=== PATIENT | female | born 1965 | race Caucasian/White ===

== ENCOUNTER 2017-02-17 10:00 | Emergency (ER) | payer BC, OTHER ==
[~2017-02-17] VITALS: Ht 154.9 cm; Wt 63.5 kg
[2017-02-17 10:12] VITALS: TEMP 36.9; Ht 154.9 cm; Wt 63.5 kg
[2017-02-17] MEDS ORDERED: ALBUTEROL 0.083% NEBU SOLN 3 ML VIAL INH STA (10:19)
[2017-02-17 10:30] LABS: BASO % 0.3 %; BASO ABS # 0.02 K/uL (0-0.2); COMPLETE YES; EOS % 5.8 %; HEMATOCRIT 44.9 % (37-47); IG% 0.2 %; LYMPH % 23.1 %; LYMPH ABS # 1.48 K/uL (1.2-3.4); MEAN CELL VOLUME 89.8 fL (80-100); MEAN CORPUSCULAR HEMOGLOBIN 31.4 pg (25-34); MEAN PLATELET VOLUME 9.5 fL (7.4-10.4); MONO % 7.7 %; NEUT % 62.9 %; PLATELET COUNT 217 K/uL (130-400)
--- NOTE | 2017-02-17 10:30 | DIAGNOSTIC IMAGING REPORT ---
CHEST ONE VIEW PORTABLE CLINICAL HISTORY: Chest Pain dyspnea COMPARISON STUDY: No previous studies for comparison. FINDINGS: The bones soft tissues and hemidiaphragms are normal. The cardiomediastinal silhouette is normal. The lungs are clear. The pulmonary vasculature is normal. IMPRESSION: Negative chest. Electronically signed by: Buster Rodrigez M.D. 02/17/2017 10:29 AM Dictated Date/Time: 02/17/2017 10:29 AM
[2017-02-17] MEDS ORDERED: AMPH30TA2 PO ×2 (10:42→11:07)
[2017-02-17] MEDS ORDERED: CALC600T9 PO ×2 (10:42→11:07)
[2017-02-17] MEDS ORDERED: BLAC40CA2 PO ×2 (10:42→11:07)
[2017-02-17] MEDS ORDERED: MULT-506 PO ×2 (10:42→11:07)
[2017-02-17] MEDS ORDERED: OMEG10007 PO ×2 (10:42→11:07)
[2017-02-17] MEDS ORDERED: BIOT1CAP8 PO ×2 (10:42→11:07)
[2017-02-17 10:48] LABS: BLOOD UREA NITROGEN 12 mg/dl (7-18); BUN/CREATININE RATIO 14.3 (10-20); CALCIUM 9.4 mg/dl (8.5-10.1); CARBON DIOXIDE 26 mmol/L (21-32); CHLORIDE 108 mmol/L (98-107); CREATININE 0.85 mg/dl (0.60-1.20); GLUCOSE 123 mg/dl (70-99); POTASSIUM 3.1 mmol/L (3.5-5.1); SODIUM 145 mmol/L (136-145)
[2017-02-17 10:53] LABS: CKMB/CK RATIO 1.1 (0-3.0)
[2017-02-17] MEDS ORDERED: AMOX875T PO (13:39)
[2017-02-17] MEDS ORDERED: BENZ100C18 PO (13:39)
[2017-02-17 13:52] VITALS: BP 114/66; PULSE 69; O2SAT 93
--- NOTE | 2017-02-17 17:01 | EMERGENCY ROOM VISIT NOTE ---
History Report prepared by Alyse: Ruben Dunaway Under the Supervision of: Dr. Bennett Faulkner D.O. First contact with patient: 10:08 Stated Complaint: ASTHMA History of Present Illness The patient is a 52 year old female who presents to the Emergency Room with complaints of asthma exacerbation that began this morning. Her asthma is usually controlled, but she states that it has worsened since her office began to be renovated and with her recent URI symptoms. She notes that since this past Saturday she has been having a cough which which is bringing up a yellow productive sputum show she had it with sinus and nasal congestion and feeling hot and cold. The cough has been worsening over the past several days. She got to [facility] this morning and her asthma worsened. She notes that she became short of breath. She took a dose of her home medications notes that she had improvement of her shortness of breath. She went to a medical center in [place] and was given steroids and a nebulizer treatment. She notes when she got the shot of steroids in her left arm, she got pain that went from the injection site down her other arm. This has resolved since then. Her breathing is improved at the current time. Her shortness of breath with exertion and chest pain is at baseline and has not changed for the past several years. Patient denies headache, change in vision, fevers, chest pain, nausea, vomiting , diarrhea, pain with urination, and melena. Patient denies any history of diabetes, hypertension, hyperlipidemia, CAD or smoking. Source of History: patient Onset: this morning Position: other (respiratory system) Symptom Intensity: mild Quality: other (Asthma exacerbation) Timing: resolved Modifying Factors (Worsening): exertion Associated Symptoms: No SOB, No back pain, No chest pain, No chills, No cough, No diarrhea, No fevers, No headache, No melena, No nausea, No sorethroat , No urinary symptoms, No vomiting Review of Systems See HPI for pertinent positives & negatives. A total of 10 systems reviewed and were otherwise negative. Past Medical & Surgical Medical Problems: (1) Asthma Family History Patient reports no known family medical history. Social History Smoking Status: Never Smoker Smokeless Tobacco Use: No Alcohol Use: none Drug Use: none Occupation Status: employed Current/Historical Medications Scheduled Amoxicillin & Pot Clavulanate (Augmentin 875-125 mg), 875 MG PO BID Amphetamine-Dextroamphetamine 30MG (Adderall 30MG), 30 MG PO DAILY Benzonatate (Tessalon Perles), 100 MG PO TID Biotin (Biotin), 1 CAP PO DAILY Black Cohosh (Cimicifuga Racem (Black Cohosh), 1 CAP PO DAILY Calcium Carbonate-Vitamin D (Calcium + D), 1 TAB PO DAILY Fish Oil (Hardin-3), 1 CAP PO DAILY Multivitamin (Multivitamin), 1 TAB PO DAILY Allergies Coded Allergies: Codeine (Unverified Allergy, Intermediate, DIZZY, ^ BREATHING, ^ HEARTBEAT , 02/17/17) Lidocaine (Unverified Allergy, Intermediate, DIZZY, ^ BREATHING, ^ HEARTBEAT, 02/17/17) Prednisone (Unverified Adverse Reaction, Intermediate, METALLIC TASTE, VERY MEAN, 02/17/17) "ALL STEROIDS" Physical Exam Vital Signs Date Time Temp Pulse Resp B/P Pulse Ox O2 Delivery O2 Flow Rate FiO2 02/17/17 13:52 69 18 114/66 93 02/17/17 12:42 72 20 99/56 97 02/17/17 11:52 74 02/17/17 11:21 78 18 112/65 100 Room Air 02/17/17 10:12 36.9 73 20 116/58 100 Room Air 02/17/17 10:12 100 Room Air Physical Exam GENERAL:Sitting up in bed, alert, well appearing, well nourished, no distress, non-toxic EYE EXAM: normal conjunctiva OROPHARYNX: no exudate, no erythema, lips, buccal mucosa, and tongue normal and mucous membranes are moist NECK: supple, no nuchal rigidity, no adenopathy, non-tender LUNGS: Mild wheezing in bilateral bases. Nonproductive cough. Normal chest wall mechanics. HEART: no murmurs, S1 normal and S2 normal ABDOMEN: abdomen soft, non-tender, normo-active bowel sounds, no masses, no rebound or guarding. BACK: Back is symmetrical on inspection and there is no deformity, no midline tenderness, no CVA tenderness. SKIN: no rashes and no bruising UPPER EXTREMITIES: upper extremities are grossly normal. LOWER EXTREMITIES: No pitting edema. Calves equal bilaterally. NEURO EXAM: Normal sensorium, cranial nerves II-XII grossly intact, normal speech, no gross weakness of arms, no gross weakness of legs. Medical Decision & Procedures ER Provider Diagnostic Interpretation: Xray results per the radiologist and my interpretation. Other results have been interpreted by the radiologist and reviewed by me. CHEST ONE VIEW PORTABLE CLINICAL HISTORY: Chest Pain dyspnea COMPARISON STUDY: No previous studies for comparison. FINDINGS: The bones soft tissues and hemidiaphragms are normal. The cardiomediastinal silhouette is normal. The lungs are clear. The pulmonary vasculature is normal. IMPRESSION: Negative chest. Electronically signed by: Buster Rodrigez M.D. 02/17/2017 10:29 AM Dictated Date/Time: 02/17/2017 10:29 AM Laboratory Results 02/17/17 10:08 Red Blood Count 5.00, Mean Corpuscular Volume 89.8, Mean Corpuscular Hemoglobin 31.4, Mean Corpuscular Hemoglobin Concent 35.0, Mean Platelet Volume 9.5, Neutrophils (%) (Auto) 62.9, Lymphocytes (%) (Auto) 23.1, Monocytes (%) (Auto) 7.7, Eosinophils (%) (Auto) 5.8, Basophils (%) (Auto) 0.3, Neutrophils # (Auto) 4.03, Lymphocytes # (Auto) 1.48, Monocytes # (Auto) 0.49, Eosinophils # (Auto) 0.37, Basophils # (Auto) 0.02 02/17/17 10:08 Test 02/17/17 10:08 02/17/17 10:52 02/17/17 12:27 White Blood Count 6.40 K/uL (4.8-10.8) Red Blood Count 5.00 M/uL (4.2-5.4) Hemoglobin 15.7 g/dL (12.0-16.0) Hematocrit 44.9 % (37-47) Mean Corpuscular Volume 89.8 fL (80-100) Mean Corpuscular Hemoglobin 31.4 pg (25-34) Mean Corpuscular Hemoglobin Concent 35.0 g/dl (32-36) Platelet Count 217 K/uL (130-400) Mean Platelet Volume 9.5 fL (7.4-10.4) Neutrophils (%) (Auto) 62.9 % Lymphocytes (%) (Auto) 23.1 % Monocytes (%) (Auto) 7.7 % Eosinophils (%) (Auto) 5.8 % Basophils (%) (Auto) 0.3 % Neutrophils # (Auto) 4.03 K/uL (1.4-6.5) Lymphocytes # (Auto) 1.48 K/uL (1.2-3.4) Monocytes # (Auto) 0.49 K/uL (0.11-0.59) Eosinophils # (Auto) 0.37 K/uL (0-0.5) Basophils # (Auto) 0.02 K/uL (0-0.2) RDW Standard Deviation 39.3 fL (36.4-46.3) RDW Coefficient of Variation 12.0 % (11.5-14.5) Immature Granulocyte % (Auto) 0.2 % Immature Granulocyte # (Auto) 0.01 K/uL (0.00-0.02) Anion Gap 11.0 mmol/L (3-11) Est Creatinine Clear Calc Drug Dose 64.6 ml/min Estimated GFR () 90.0 Estimated GFR (Non- 77.7 BUN/Creatinine Ratio 14.3 (10-20) Calcium Level 9.4 mg/dl (8.5-10.1) Total Creatine Kinase 72 U/L (26-192) Creatine Kinase MB 0.8 ng/ml (0.5-3.6) Creatine Kinase MB Ratio 1.1 (0-3.0) Influenza Type A Antigen Neg for Influ A (NEG) Influenza Type B Antigen Neg for Influ B (NEG) Troponin I < 0.015 ng/ml (0-0.045) Laboratory results per my review. Medications Administered Medications (Trade) Dose Ordered Sig/Mina Route Start Time Stop Time Status Last Admin Dose Admin Albuterol Sulfate (Ventolin 0.083% 2.5MG/3ML Neb) 2.5 mg NOW STAT INH 02/17/17 10:19 02/17/17 10:20 DC 02/17/17 10:49 2.5 MG ECG Indication: SOB/dyspnea Rate (beats per minute): 66 Rhythm: sinus rhythm Findings: nonspecific-ST abn (Lateral), other (Normal axis) Comparison ECG Date: 24 Apr 2016 Change: no significant change ED Course ED COURSE: Vital signs were reviewed and showed nothing abnormal The patients medical record was reviewed The above diagnostic studies were performed and reviewed. ED treatments and interventions as stated above. 1008: The patient was evaluated in room A10. A complete history and physical examination was performed. 1019: Ordered Albuterol Sulfate 2.5 mg INH 1348: Upon reevaluation, the patient is resting. I discussed my findings with the patient and she understands and agrees with the treatment plan. The patient remained stable while under my care. The patient appeared well at the time of discharge. Medical Decision Differential diagnoses includes but is not limited to pneumonia, bronchitis, COPD/Asthma exacerbation, pneumothorax, pulmonary embolism, congestive heart failure, acute coronary syndrome Patient is a 52-year-old female with no significant cardiac history that presents to ER for shortness of breath associated with a productive cough, nasal congestion which has been worsening over the past 3 days. She notes that she walked into [facility] and she was feeling more short of breath. She took a neb treatment and felt significantly better but she was still short of breath and consequently went to urgent care and was referred in following another neb treatment. She does admit to still having some mild shortness breath. She notes the time that it STARTED she had a weird feeling up the base of her throat. There is no radiation of this discomfort. And resolved shortly after the neb treatment. Patient has no cardiac risk factors. EKG was improved from [place] [facility] no longer ST depressions in the lateral leads. Chest x-ray was unremarkable. Influenza A and B were negative. Troponins were negative 2. I believe her potassium is slightly low secondary to the neb treatment. This was not repleted as it will resolve on its own. Based on her wheezing on my exam which improved with a neb treatment and her symptoms which improved with neb treatments along with her productive sputum do feels though she likely has a bronchitis exacerbating her asthma. She was given dose of antibiotics and felt completely back to baseline and was discharged follow-up with her primary care doctor. She does not that she has normal chest pain and shortness of breath on exertion which has been unchanged for the past several years. She notes that she follows with cardiology for this and pulmonology. At this time I felt the patient was stable to be discharged and follow-up with primary care doctor tomorrow. Discussed with Pt concerning signs and symptoms to watch out for. Pt was instructed to follow up with their PCP and discussed with the patient their option to return to the ED at anytime for persistent or worsening symptoms. The appropriate anticipatory guidance and out-patient management, including indications for return to the emergency department, were explained at length to the patient and understood. Impression Primary Impression: Asthma exacerbation Additional Impressions: Bronchitis Hypokalemia Scribe Attestation The scribe's documentation has been prepared under my direction and personally reviewed by me in its entirety. I confirm that the note above accurately reflects all work, treatment, procedures, and medical decision making performed by me. Departure Information Dispostion Home / Self-Care Prescriptions Benzonatate (TESSALON PERLES) 100 Mg Cap 100 MG PO TID, #30 CAP Prov: Bennett Faulkner, DO 02/17/17 Amoxicillin & Pot Clavulanate (Augmentin 875-125 mg) 1 Tab Tab 875 MG PO BID for 7 Days, TAB Prov: Bennett Faulkner, DO 02/17/17 Referrals Nichole Valero M.D. Forms HOME CARE DOCUMENTATION FORM, IMPORTANT VISIT INFORMATION, WORK / SCHOOL INSTRUCTIONS Patient Instructions ED Bronchitis Abx Tx, My [facility] Additional Instructions Please follow up with your primary care doctor with in the next 24 hours. Any worsening of your symptoms, please return to the ED immediately. This includes fevers greater than 100.4, change in sputum, chest pain, passing out, worsening shortness breath, or any other concerning signs or symptoms from your standpoint. Problem Qualifiers
== END 2017-02-17 13:55 | disposition home or self-care (01) ==
LOC: EDBD 10:00 → C.EDA 10:02
DX: J45.901 Unspecified asthma with (acute) exacerbation (principal); J40 Bronchitis, not specified as acute or chronic; E87.6 Hypokalemia

== ENCOUNTER → 2017-12-26 | Outpatient (CLI) | payer OTHER ==
[~2017-12-26] MED LIST: AMPH30TA2 PO; BIOT1CAP8 PO; BLAC40CA2 PO; CALC600T9 PO; MULT-506 PO; OMEG10007 PO
== END | disposition home or self-care (01) ==
LOC: C.PAPS 09:15
PROVIDERS: ATTEND Obstetrics & Gynecology
DX: Z01.419 Encounter for gynecological examination (general) (routine) without abnormal findings (principal)

== ENCOUNTER 2025-06-09 18:45 | Observation (INO) ==
[2025-06-09 18:49] VITALS: TEMP 98.1
--- NOTE | 2025-06-09 19:24 | Emergency Department Note ---
Impression & Plan SOB (shortness of breath), Extremity numbness, Numbness of tongue, Speech abnormality, Medication reaction ED Provider Note NAME: ERIBERTO PRUITT AGE: 60 SEX: F : 1965 ARRIVES VIA: Walk-In INFORMANT: [Patient][family/friend] ED PROVIDER(S): [Ethan Will MD] CHIEF COMPLAINT: Allergic reaction HISTORY OF PRESENT ILLNESS: Patient is a 60-year-old female who states that she had chemotherapy today. She states that after chemotherapy, she began to feel poorly. For the last hour and 15 minutes, she has felt short of breath and she has had cramping in her fingers, tongue, legs. She has pain in her tongue and fingers. She has numbness in the fingers and tongue. She has a headache. She feels like she is having a harder time getting her breath. She has a hard time getting out her words. Patient had somewhat similar symptoms with chemotherapy before but nothing to this extent. PMHx/PSHx/Social Hx: See Below PHYSICAL EXAM: GENERAL: Patient is in no acute distress. HEENT: No acute trauma, normocephalic atraumatic, mucous membranes moist, no nasal congestion. NECK: No stridor, no adenopathy, no meningismus, trachea is midline. LUNGS: Clear to auscultation bilaterally, no wheeze, no rhonchi, breath sounds equal. HEART: Without murmurs gallops or rubs, regular rate and rhythm. ABDOMEN: Soft, nontender, no peritonitis. EXTREMITIES: No cyanosis, full range of motion of all the joints without pain or difficulty. NEUROLOGIC: Oriented x 3, no acute motor or sensory deficits, no focal weakness. Generalized extremity tremor seen. She has a difficult time getting out her words but her speech is clear. There is no facial droop, no extremity drift or cerebellar dysfunction. SKIN: No jaundice, no diaphoresis. DIFFERENTIAL DIAGNOSIS: Medication reaction, electrolyte imbalance, anxiety, dehydration, stroke or CVA, among others. EMERGENCY DEPARTMENT PROCEDURES: MEDICAL DECISION MAKING: There is no leukocytosis or concerning anemia. There is a normal platelet count. No renal failure or significant electrolyte abnormality. No concerning liver enzyme elevation. The TSH was slightly high however, the T4 was normal. Urinalysis shows potential infection although, there were no bacteria seen. Chest x-ray does not show pneumonia or CHF. ECG shows a sinus rhythm, no ischemia or dysrhythmia. On exam, there were no focal neurologic findings, the patient had a very slow speech but no speech slur. There was no facial droop. The patient received IV saline, IV Zofran, IV Ativan and IV Benadryl--she feels better, her speech has improved. The patient does not feel safe with discharge home, I do think it would be reasonable to continue observation here in the hospital. Continued hydration and symptom control is warranted. The patient very likely did have a reaction from her chemotherapy. Looking at the side effects of the medication, the symptoms she describes have been previously documented. The patient understands the need for a hospital stay. I did speak with case management, the on-call hospitalist was consulted. Prior/Outside records/notes reviewed: None ECG per my interpretation: Indication was shortness of breath. The ECG shows a normal sinus rhythm with a rate of 84. There is no ST elevation, no PVCs but the QTc is 453. Continuous Cardiac Monitoring per my interpretation: An order was placed for continuous cardiac monitoring. The monitor shows a rate of 80 with normal sinus rhythm. Imaging/x-ray results per my interpretation: Chest x-ray does not show CHF or pneumonia. There is no pneumothorax. Chronic Medical/Social conditions affecting care: Colorectal cancer, currently on chemotherapy. Care/Management discussed with: Case management, the on-call hospitalist. Level of care consideration(s): After review of the information above and other included data: --I believe the patient requires escalation of care to admission DISPOSITION: Admission Past Med/Surg History Problem List (Updated 06/09/25 @ 22:40 by Ethan Will MD) Medication reaction (Acute) Speech abnormality (Acute) Numbness of tongue (Acute) Extremity numbness (Acute) SOB (shortness of breath) (Acute) Blood in stool Adenocarcinoma of sigmoid colon Left ureteral stone Colon cancer External bleeding hemorrhoids Atrophic vaginitis Asthma (Chronic) Medical History History of COVID-19 ~2022 History of colon polyps Colon cancer Dx 01/2025, sx intervention Menopausal hot flushes History of diverticulitis History of kidney stones Kidney stones Asthma Hyperlipidemia Prediabetes Environmental allergies Celiac disease ADHD Patent foramen ovale Follows with [facility] cardio Future echo plan for 2025 Surgical History Port-A-Cath in place (04/20/25) History of colon resection (03/15/25) Hx of colonoscopy (~01/29/25) History of cataract surgery (2022) History of surgery (2020) History of removal of calculus of renal pelvis through percutaneous nephrostomy S/P tubal ligation S/P tonsillectomy H/O section S/P appendectomy Family History Father Diabetes Coronary heart disease Heart disease Myocardial infarction Mother Diabetes Osteoporosis Coronary heart disease Heart disease Myocardial infarction Breast cancer Kidney failure Sister Diabetes Heart disease Kidney failure Family history of reaction to anesthesia Aunt Diabetes Myocardial infarction Grandmother (Paternal) Diabetes Myocardial infarction Grandfather (Paternal) Diabetes Heart disease Other Hypertension Stroke Social History Smoking Status: Never smoker Second Hand Exposure: No; Do You Dip or Chew Tobacco: No; Hx Alcohol Use: No Hx Substance Use: No Preferred Language: Kyrgyz Communication Ability: Effective Visual Impairment: No Limitations Hearing Ability: Normal Surgeon/President Required: No Beliefs That Will Affect Care: None marital status: Current Living Situation: Spouse Current Living Situation Comment: current occupational status: unemployed How many Children do You have: 3 Feels Safe at Home: Yes Childhood Exposure to Second-Hand Smoke: No Diet: regular caffeine: Yes during the past year weight has: remained stable Dental Care, Regularly: Yes Physical Activity Frequency: 1-2 Times per Week Seatbelt Use: always Sunscreen Use: Yes Assistive Devices: None Allergies Allergies Allergy/AdvReac Type Severity Reaction Status Date / Time codeine Allergy Intermediate Dizziness, Verified 06/09/25 21:12 dyspnea, increased heartbeat gluten Allergy Intermediate Celiac Verified 06/09/25 21:12 disease lidocaine Allergy Intermediate Dizziness, Verified 06/09/25 21:12 dyspnea, increased heartbeat prednisone AdvReac Intermediate Metallic Verified 06/09/25 21:12 taste, "very mean", increased heart rate environmental allergies Allergy Intermediate Hay Uncoded 06/09/25 21:12 fever-type symptoms steroids Allergy Intermediate Dizziness, Uncoded 06/09/25 21:12 dyspnea, increased heartbeat Home Meds Home Medications Medication Instructions Recorded Confirmed biotin 10 mg tablet 10 mg PO DAILY 08/22/19 06/09/25 dextroamphetamine-amphetamine 30 30 mg PO QAM 08/22/19 06/09/25 mg tablet lutein 20 mg tablet 20 mg PO DAILY 08/22/19 06/09/25 riccardoa root extract 500 mg 1,000 mg PO BID 10/28/24 06/09/25 capsule albuterol sulfate 2.5 mg/3 mL 2.5 mg inhalation DIRECTED PRN 04/09/25 06/09/25 (0.083 %) solution for nebulization asthma albuterol sulfate 90 mcg/actuation 2 puff inhalation DIRECTED PRN 04/09/25 06/09/25 aerosol inhaler asthma multivitamin 1 tab PO DAILY 04/30/25 06/09/25 perfluorohexyloctane (PF) 100 % 1 drp OPB QID 04/30/25 06/09/25 eye drops (Miebo (PF)) polyethylene glycol 3350 17 gram 17 g PO DAILY 04/30/25 06/09/25 oral powder packet (Miralax) wheat dex-L. acid-aspartame 4 6 g PO TID 04/30/25 06/09/25 gram-500 million cell/6 gram oral powder (Fiber With Probiotic) capecitabine 500 mg tablet 500 mg PO BID 05/24/25 06/09/25 ondansetron HCl 8 mg tablet 8 mg PO Q12H 05/24/25 06/09/25 prochlorperazine maleate 10 mg 10 mg PO BID PRN NAUSEA/VOMITING 05/24/25 06/09/25 tablet Previous Rx's Medication Instructions Recorded coQ10 (ubiquinol) 100 mg capsule 100 mg PO DAILY #60 caps 10/26/24 (CoQmax Ubiquinol) lions brittany 1,000 mg PO DAILY #500 mg 10/26/24 oxycodone 5 mg tablet 5 mg PO Q6H PRN pain #10 tabs 04/30/25 Results & Data (ED) Vital Signs Vital Signs - 24 hr 06/09/25 18:45 06/09/25 18:46 06/09/25 19:09 Temperature 36.7 C Temperature Source Temporal Artery Scan Pulse Rate 88 81 Pulse Rate from SpO2 Sensor 81 Respiratory Rate 29 H 25 H Respiratory Effort / Characteristics Non-Labored Spontaneous Respiratory Depth Normal Blood Pressure 115/62 Blood Pressure Mean 79 Pulse Oximetry 98 99 97 Oxygen Delivery Method Room Air Room Air Sepsis Recent Fever Within 48 Hours No Sepsis New/Unexplained Change in Mental Status No Sepsis Action Taken by Nursing No Action Required 06/09/25 19:15 06/09/25 19:16 06/09/25 19:20 Temperature Temperature Source Pulse Rate 80 80 85 Pulse Rate from SpO2 Sensor 80 Respiratory Rate 23 20 Respiratory Effort / Characteristics Respiratory Depth Blood Pressure Blood Pressure Mean Pulse Oximetry 96 97 Oxygen Delivery Method Room Air Sepsis Recent Fever Within 48 Hours Sepsis New/Unexplained Change in Mental Status Sepsis Action Taken by Nursing 06/09/25 19:51 06/09/25 20:00 06/09/25 20:00 Temperature Temperature Source Pulse Rate 84 89 Pulse Rate from SpO2 Sensor 85 89 Respiratory Rate 23 25 H Respiratory Effort / Characteristics Respiratory Depth Blood Pressure 119/66 Blood Pressure Mean 85 Pulse Oximetry 97 97 Oxygen Delivery Method Sepsis Recent Fever Within 48 Hours Sepsis New/Unexplained Change in Mental Status Sepsis Action Taken by Nursing 06/09/25 20:00 06/09/25 20:12 06/09/25 20:26 Temperature Temperature Source Pulse Rate 85 Pulse Rate from SpO2 Sensor 86 Respiratory Rate 18 Respiratory Effort / Characteristics Respiratory Depth Blood Pressure 119/66 121/67 Blood Pressure Mean 85 81 Pulse Oximetry 99 Oxygen Delivery Method Sepsis Recent Fever Within 48 Hours Sepsis New/Unexplained Change in Mental Status Sepsis Action Taken by Nursing 06/09/25 20:30 06/09/25 20:48 06/09/25 20:57 Temperature Temperature Source Pulse Rate 91 H 86 Pulse Rate from SpO2 Sensor 91 H 88 Respiratory Rate 24 23 Respiratory Effort / Characteristics Respiratory Depth Blood Pressure 123/71 Blood Pressure Mean 90 Pulse Oximetry 96 95 Oxygen Delivery Method Sepsis Recent Fever Within 48 Hours Sepsis New/Unexplained Change in Mental Status Sepsis Action Taken by Nursing 06/09/25 21:00 06/09/25 21:00 06/09/25 21:06 Temperature Temperature Source Pulse Rate 86 Pulse Rate from SpO2 Sensor 86 Respiratory Rate 24 Respiratory Effort / Characteristics Respiratory Depth Blood Pressure 113/71 113/71 Blood Pressure Mean 84 84 Pulse Oximetry 96 Oxygen Delivery Method Sepsis Recent Fever Within 48 Hours Sepsis New/Unexplained Change in Mental Status Sepsis Action Taken by Nursing 06/09/25 21:15 06/09/25 21:27 06/09/25 21:30 Temperature Temperature Source Pulse Rate 87 89 Pulse Rate from SpO2 Sensor 88 88 Respiratory Rate 22 22 Respiratory Effort / Characteristics Respiratory Depth Blood Pressure 101/70 Blood Pressure Mean 84 Pulse Oximetry 95 94 Oxygen Delivery Method Sepsis Recent Fever Within 48 Hours Sepsis New/Unexplained Change in Mental Status Sepsis Action Taken by Nursing 06/09/25 21:30 06/09/25 21:30 06/09/25 21:30 Temperature Temperature Source Pulse Rate 92 H Pulse Rate from SpO2 Sensor 91 H Respiratory Rate 26 H Respiratory Effort / Characteristics Respiratory Depth Blood Pressure 101/70 101/70 Blood Pressure Mean 84 84 Pulse Oximetry 94 Oxygen Delivery Method Sepsis Recent Fever Within 48 Hours Sepsis New/Unexplained Change in Mental Status Sepsis Action Taken by Nursing 06/09/25 21:56 06/09/25 21:56 06/09/25 21:56 Temperature Temperature Source Pulse Rate Pulse Rate from SpO2 Sensor Respiratory Rate Respiratory Effort / Characteristics Respiratory Depth Blood Pressure 117/66 117/66 117/66 Blood Pressure Mean 87 87 87 Pulse Oximetry Oxygen Delivery Method Sepsis Recent Fever Within 48 Hours Sepsis New/Unexplained Change in Mental Status Sepsis Action Taken by Nursing 06/09/25 21:57 06/09/25 22:00 06/09/25 22:00 Temperature Temperature Source Pulse Rate 93 H Pulse Rate from SpO2 Sensor 94 H Respiratory Rate 24 Respiratory Effort / Characteristics Respiratory Depth Blood Pressure 114/67 114/67 Blood Pressure Mean 79 79 Pulse Oximetry 96 Oxygen Delivery Method Sepsis Recent Fever Within 48 Hours Sepsis New/Unexplained Change in Mental Status Sepsis Action Taken by Nursing 06/09/25 22:00 06/09/25 22:00 Temperature Temperature Source Pulse Rate 94 H Pulse Rate from SpO2 Sensor 93 H Respiratory Rate 24 Respiratory Effort / Characteristics Respiratory Depth Blood Pressure 114/67 Blood Pressure Mean 79 Pulse Oximetry 96 Oxygen Delivery Method Sepsis Recent Fever Within 48 Hours Sepsis New/Unexplained Change in Mental Status Sepsis Action Taken by Intermediate Medications Current Medication List: was personally reviewed by me Laboratory Data Attestation: I reviewed the patient's lab results. 06/09/25 19:05 06/09/25 19:05 Lab Results 06/09/25 06/09/25 Range/Units 19:05 21:55 WBC 7.05 (4.8-10.8) K/ul RBC 4.52 (4.20-5.40) M/uL Hgb 13.5 (12.0-16.0) g/dl Hct 40.5 (37.0-47.0) % MCV 89.6 (80.0-100.0) fL MCH 29.9 (25.0-34.0) pg MCHC 33.3 (32.0-36.0) g/dL RDW Std Deviation 46.3 (36.4-46.3) fL RDW Coeff of Zaid 15.9 H (11.5-14.5) % Plt Count 225 (130-400) K/uL MPV 9.0 L (9.4-12.4) fL Immature Gran % (Auto) 0.4 % Neut % (Auto) 89.5 % Lymph % (Auto) 5.8 % Nye % (Auto) 2.4 % Eos % (Auto) 1.8 % Baso % (Auto) 0.1 % Neut # (Auto) 6.30 (1.40-6.50) K/uL Lymph # (Auto) 0.41 L (1.20-3.40) K/uL Nye # (Auto) 0.17 (0.11-0.59) K/uL Eos # (Auto) 0.13 (0.00-0.50) K/uL Baso # (Auto) 0.01 (0.00-0.20) K/uL Immature Gran # (Auto) 0.03 (0.01-0.20) K/uL Sodium 139 (136-145) mmol/L Potassium 3.7 (3.5-5.1) mmol/L Chloride 105 (98-107) mmol/L Carbon Dioxide 29 (21-32) mmol/L Anion Gap 5 (3-11) BUN 14 (6-23) mg/dl Creatinine 0.67 (0.6-1.2) mg/dl Est Cr Clr Drug Dosing Not Reportable eGFR 98.76 BUN/Creatinine Ratio 20.9 H (10-20) Glucose 117 H (70-99(Fasting)) mg/dl Calcium 8.7 (8.6-10.3) mg/dl Magnesium 2.0 (1.7-2.4) mg/dl Total Bilirubin 0.4 (0.2-1.0) mg/dl AST 35 (13-39) U/L ALT 32 (7-52) U/L Alkaline Phosphatase 82 (34-104) U/L Total Protein 6.8 (6.0-8.3) gm/dl Albumin 3.7 (3.4-5.0) gm/dl Globulin 3.1 (2.5-4.0) gm/dl Albumin/Globulin Ratio 1.2 (0.9-2) TSH 6.707 H (0.300-4.500) uIu/ml Free T4 0.77 (0.61-1.60) ng/dl Urine Color Yellow Urine Appearance Clear (Clear) Urine pH 6.0 (4.5-7.5) Ur Specific Meredith 1.009 (1.000-1.030) Urine Protein Negative (Negative) Urine Glucose (UA) Negative (Negative) Urine Ketones Negative (Negative) Urine Blood Negative (Negative) Urine Nitrite Negative (Negative) Urine Bilirubin Negative (Negative) Urine Urobilinogen Negative (Negative) Ur Leukocyte Esterase 1+ H (Negative) Urine WBC (Auto) 21-50 H (0-5) /hpf Urine RBC (Auto) 0-2 (0-2) /hpf U Hyaline Cast (Auto) 0-2 (0-2) /lpf U Epithel Cells (Auto) 0-2 (0-2) /hpf Urine Bacteria (Auto) None Seen (None Seen) Calcium Oxalate Crystal Present A (None Prsent) Urine Comment Administered Medications Discontinued Medications Diphenhydramine HCl (Diphenhydramine 50 Mg/Ml Vial) 25 mg IV NOW STA Stop: 06/09/25 19:20 Last Admin: 06/09/25 19:26 Dose: 25 mg Documented By: GURMEET Sodium Chloride (Nss) 1,000 mls @ 999 mls/hr IV .Q1H1M ONE Stop: 06/09/25 20:19 Last Admin: 06/09/25 19:27 Dose: 999 mls/hr Documented By: GURMEET Lorazepam (Lorazepam 2 Mg/1 Ml Vial) 0.5 mg IV NOW STA Stop: 06/09/25 19:20 Last Admin: 06/09/25 19:26 Dose: 0.5 mg Documented By: GURMEET Ondansetron HCl (Ondansetron Inj 2 Mg/Ml 2 Ml Vial) 4 mg IV NOW STA Stop: 06/09/25 19:20 Last Admin: 06/09/25 19:26 Dose: 4 mg Documented By: GURMEET Imaging Data Radiologist's Impression: Chest X-Ray 06/09/25 19:19 Exam(s): XR CXR 1 VIEW EXAM: XR Chest, 1 View CLINICAL HISTORY: Shortness of breath TECHNIQUE: Frontal view of the chest. COMPARISON: 04/30/2025 FINDINGS: Lungs: No consolidation. Pleural space: No significant pleural effusion. No pneumothorax. Heart: No cardiomegaly or pulmonary vascular congestion. Bones/joints: No acute fracture. No dislocation. IMPRESSION: No evidence of acute cardiopulmonary disease. Electronically signed by: Darrian Crum M.D. 06/09/25 22:19 PM Discharge Plan Visit Data Chief Complaint: Allergic Reaction Stated Complaint: ALLERGIC REACTION ED Provider: Ethan Will Discharge Problem: SOB (shortness of breath), Extremity numbness, Numbness of tongue, Speech abnormality, Medication reaction Patient Disposition: Admitted As Inpatient Condition: Fair Forms Stand Alone Forms: [facility] [employer] Prescriptions Prescriptions: No Action lutein 20 mg tablet 20 mg PO DAILY dextroamphetamine-amphetamine 30 mg tablet 30 mg PO QAM Patient Comments: not extended release biotin 10 mg tablet 10 mg PO DAILY coQ10 (ubiquinol) [CoQmax Ubiquinol] 100 mg capsule 100 mg PO DAILY Qty: 60 0RF lions brittany 1,000 mg PO DAILY Qty: 500 0RF capecitabine 500 mg tablet 500 mg PO BID prochlorperazine maleate 10 mg tablet 10 mg PO BID PRN (Reason: NAUSEA/VOMITING) ondansetron HCl 8 mg tablet 8 mg PO Q12H albuterol sulfate 2.5 mg /3 mL (0.083 %) solution for nebulization 2.5 mg inhalation DIRECTED PRN (Reason: asthma) albuterol sulfate 90 mcg/actuation HFA aerosol inhaler 2 puff inhalation DIRECTED PRN (Reason: asthma) ashwagandha root extract 500 mg capsule 1,000 mg PO BID Rx Instructions: 2 capsules twice daily orally; multivitamin Tablet 1 tab PO DAILY polyethylene glycol 3350 [Miralax] 17 gram Powder In Packet 17 g PO DAILY Fiber With Probiotic 4 g-500 million cell/6 gram Powder 6 g PO TID Miebo (PF) 100 % Drops 1 drp OPB QID oxycodone 5 mg tablet 5 mg PO Q6H PRN (Reason: pain) Qty: 10 0RF Referrals Referrals: Shun Edmondson DO [Primary Care Provider] - Discharge Problem: Speech abnormality Qualifiers: Speech disturbance type: unspecified speech disturbance Qualified Code(s): R 47.9 - Unspecified speech disturbances Medication reaction Qualifiers: Encounter type: initial encounter Qualified Code(s): T50.905A - Adverse effect of unspecified drugs, medicaments and biological substances, initial encounter
[2025-06-09] MEDS: ONDANSETRON INJ 2 MG/ML 2 ML VIAL IV STA (19:26)
[2025-06-09] MEDS: diphenhydrAMINE 50 MG/ML VIAL IV STA (19:26)
[2025-06-09] MEDS: SODIUM CHLORIDE 0.9% 1,000 ML IV ONE (19:27)
[2025-06-09 19:30] LABS: Hematocrit (blood only) 40.5 % (37.0-47.0); Hemoglobin 13.5 g/dl (12.0-16.0); Immature Granulocytes # (auto) 0.03 K/uL (0.01-0.20); Immature Granulocytes % (auto) 0.4 %; Mean Corpuscular Hemoglobin 29.9 pg (25.0-34.0); Mean Corpuscular Volume 89.6 fL (80.0-100.0); Platelet Count 225 K/uL (130-400); RDW Standard Deviation 46.3 fL (36.4-46.3); Red Blood Count 4.52 M/uL (4.20-5.40); White Blood Count 7.05 K/ul (4.8-10.8)
[2025-06-09 19:46] LABS: Alanine Aminotransferase 32 U/L (7-52); Albumin Globulin Ratio 1.2 (0.9-2); Alkaline Phosphatase 82 U/L (34-104); Anion Gap 5 (3-11); Bilirubin,Total 0.4 mg/dl (0.2-1.0); Blood Urea Nitrogen 14 mg/dl (6-23); Calcium 8.7 mg/dl (8.6-10.3); Carbon Dioxide 29 mmol/L (21-32); Chloride 105 mmol/L (98-107); Globulin 3.1 gm/dl (2.5-4.0); Glucose 117 mg/dl (70-99(Fasting)); Magnesium 2.0 mg/dl (1.7-2.4); Potassium 3.7 mmol/L (3.5-5.1); Sodium 139 mmol/L (136-145); Total Protein 6.8 gm/dl (6.0-8.3)
[2025-06-09 20:01] LABS: Thyroid Stimulating Hormone 6.707 uIu/ml (0.300-4.500)
--- NOTE | 2025-06-09 22:20 | XRay Report ---
Exam(s): XR CXR 1 VIEW EXAM: XR Chest, 1 View CLINICAL HISTORY: Shortness of breath TECHNIQUE: Frontal view of the chest. COMPARISON: 04/30/2025 FINDINGS: Lungs: No consolidation. Pleural space: No significant pleural effusion. No pneumothorax. Heart: No cardiomegaly or pulmonary vascular congestion. Bones/joints: No acute fracture. No dislocation. IMPRESSION: No evidence of acute cardiopulmonary disease. Electronically signed by: Darrian Crum M.D. 06/09/25 22:19 PM
[2025-06-09 22:24] LABS: Appearance Urine Clear (Clear); Bacteria Urine Automated None Seen (None Seen); Cast Urine Automated 0-2 /lpf (0-2); Epithelial Cell Urine Auto 0-2 /hpf (0-2); Glucose Urine UA Negative (Negative); RBC Urine Automated 0-2 /hpf (0-2); WBC Urine Automated 21-50 /hpf (0-5)
--- NOTE | 2025-06-09 22:45 | History & Physical Report ---
Date of Service June 09, 2025 Assessment & Plan (1) Medication reaction: (2) Adenocarcinoma of sigmoid colon: (3) Colon cancer: Plan 61 y/o female with pmh of adenocarcinoma of sigmoid colon, asthma, ADHD, hyperlipidemia, pre diabetes, celiac disease, hx of kidney stones here due to nausea, muscle spasm/cramps, and weakness. Patient got chemotherapy today 06/09, IV Cisplatin. Patient states when she got home she developed feel bilateral hand dumbness and cold, muscle twitching/ spasm on arm, legs and eye lashes. She states that has throat swelling and difficulty breathing. She got similar side effects on previous infusion but not at this extent. On evaluation pt states s ymptoms had improved but still feel weak. She is concern of symptoms returning tomorrow. Will admit patient for further monitoring and IV fluids hydration Will admit patient for further monitoring and IV fluids hydration #allergic reaction/ Side effects of Cisplatin / Sigmoid Adenocarcinoma, stage 3 - Nausea, muscle twitching bilateral hand numbness/ cold, throat swelling and trouble breathing. Patient had similar symptoms in the past after 1-2 days of infusion, but not at this extent - ED course Iv Zofran, iv Benadryl, Ativan. 0.5, 1L NSs - Chest x-ray does not show pneumonia or CHF. - ECG shows a sinus rhythm, no ST changes - no wheezing, no SOB on admission - Normal neuro exam, no facial droop - On admission symptoms had improved - Lactate ringer 80 ml/hr - 1 bag - Benadryl if needed -Continue home capecitabine 500 mg BID - Admit to med/telemetry - CBC, BMP, Mag, phosphorus #ADHD -Continues on Adderall 30mg QD #Asthma -PRN Albuterol DVT prophylaxis- Lovenox sq History of Present Illness Primary Care Provider: Shun Edmondson DO 61 y/o female with pmh of adenocarcinoma of sigmoid colon, asthma, ADHD, hyperlipidemia, pre diabetes, celiac disease, hx of kidney stones here due to nausea, muscle spasm/cramps, and weakness. Patient got chemotherapy today 06/09, IV Cisplatin. Patient states when she got home she developed feel bilateral hand dumbness and cold, muscle twitching/ spasm on arm, legs and eye lashes. She states that has throat swelling and difficulty breathing. She got similar side effects on previous infusion but not at this extent. On evaluation pt states symptoms had improved but still feel weak. She is concern of symptoms returning tomorrow. Will admit patient for further monitoring and IV fluids hydration Ed course: Benadryl 25 mg, Ativan 0.5 mg, 1L NSS bolus, Zofran Allergies Allergy/AdvReac Type Severity Reaction Status Date / Time codeine Allergy Intermediate Dizziness, Verified 06/09/25 21:12 dyspnea, increased heartbeat Corticosteroids Allergy Intermediate (STEROIDS)Dizziness, Verified 06/09/25 22:57 (Glucocorticoids) dyspnea, increased heartbeat gluten Allergy Intermediate Celiac Verified 06/09/25 21:12 disease lidocaine Allergy Intermediate Dizziness, Verified 06/09/25 21:12 dyspnea, increased heartbeat prednisone AdvReac Intermediate Metallic Verified 06/09/25 21:12 taste, "very mean", increased heart rate Home Medications Medication Instructions Recorded Confirmed Type biotin 10 mg tablet 10 mg PO DAILY 08/22/19 06/09/25 History dextroamphetamine-amphetamine 30 30 mg PO QAM 08/22/19 06/09/25 History mg tablet lutein 20 mg tablet 20 mg PO DAILY 08/22/19 06/09/25 History coQ10 (ubiquinol) 100 mg capsule 100 mg PO DAILY #60 caps 10/26/24 06/09/25 Rx (CoQmax Ubiquinol) lions brittany 1,000 mg PO DAILY #500 mg 10/26/24 06/09/25 Rx ashwagandha root extract 500 mg 1,000 mg PO BID 10/28/24 06/09/25 History capsule albuterol sulfate 2.5 mg/3 mL 2.5 mg inhalation DIRECTED PRN 04/09/25 06/09/25 History (0.083 %) solution for nebulization asthma albuterol sulfate 90 mcg/actuation 2 puff inhalation DIRECTED PRN 04/09/25 06/09/25 History aerosol inhaler asthma multivitamin 1 tab PO DAILY 04/30/25 06/09/25 History oxycodone 5 mg tablet 5 mg PO Q6H PRN pain #10 tabs 04/30/25 06/09/25 Rx perfluorohexyloctane (PF) 100 % 1 drp OPB QID 04/30/25 06/09/25 History eye drops (Miebo (PF)) polyethylene glycol 3350 17 gram 17 g PO DAILY 04/30/25 06/09/25 History oral powder packet (Miralax) wheat dex-L. acid-aspartame 4 6 g PO TID 04/30/25 06/09/25 History gram-500 million cell/6 gram oral powder (Fiber With Probiotic) capecitabine 500 mg tablet 500 mg PO BID 05/24/25 06/09/25 History ondansetron HCl 8 mg tablet 8 mg PO Q12H 05/24/25 06/09/25 History prochlorperazine maleate 10 mg 10 mg PO BID PRN NAUSEA/VOMITING 05/24/25 06/09/25 History tablet Past Med/Surg History Problem List (Updated 06/09/25 @ 22:40 by Ethan Will MD) Medication reaction (Acute) Speech abnormality (Acute) Numbness of tongue (Acute) Extremity numbness (Acute) SOB (shortness of breath) (Acute) Blood in stool Adenocarcinoma of sigmoid colon Left ureteral stone Colon cancer External bleeding hemorrhoids Atrophic vaginitis Asthma (Chronic) Medical History History of COVID-19 ~2022 History of colon polyps Colon cancer Dx 01/2025, sx intervention Menopausal hot flushes History of diverticulitis History of kidney stones Kidney stones Asthma Hyperlipidemia Prediabetes Environmental allergies Celiac disease ADHD Patent foramen ovale [facility] Future echo plan for 2025 Surgical History Port-A-Cath in place (04/20/25) History of colon resection (03/15/25) Hx of colonoscopy (~01/29/25) History of cataract surgery (2022) History of surgery (2020) History of removal of calculus of renal pelvis through percutaneous nephrostomy S/P tubal ligation S/P tonsillectomy H/O section S/P appendectomy Family History Father Diabetes Coronary heart disease Heart disease Myocardial infarction Mother Diabetes Osteoporosis Coronary heart disease Heart disease Myocardial infarction Breast cancer Kidney failure Sister Diabetes Heart disease Kidney failure Family history of reaction to anesthesia Aunt Diabetes Myocardial infarction Grandmother (Paternal) Diabetes Myocardial infarction Grandfather (Paternal) Diabetes Heart disease Other Hypertension Stroke Social History Smoking Status: Never smoker Second Hand Exposure: No; Do You Dip or Chew Tobacco: No; Hx Alcohol Use: No Hx Substance Use: No Preferred Language: Norwegian Communication Ability: Effective Visual Impairment: No Limitations Hearing Ability: Normal Data Analytics Analyst Required: Yes and No Beliefs That Will Affect Care: None marital status: Current Living Situation: Significant Other Current Living Situation Comment: current occupational status: unemployed How many Children do You have: 3 Feels Safe at Home: Yes Childhood Exposure to Second-Hand Smoke: No Diet: regular caffeine: Yes during the past year weight has: remained stable Dental Care, Regularly: Yes Physical Activity Frequency: 1-2 Times per Week Seatbelt Use: always Sunscreen Use: Yes Assistive Devices: None Results & Data Results & Data Vital Signs (Past 12 Hours) Vital Signs Temp Pulse Resp BP Pulse Ox O2 Del Method 06/09/25 22:00 94 H 24 96 06/09/25 22:00 114/06/09/25 22:00 114/06/09/25 22:00 114/06/09/25 21:57 93 H 24 96 06/09/25 21:56 117/06/09/25 21:56 117/06/09/25 21:56 117/06/09/25 21:30 92 H 26 H 94 06/09/25 21:30 101/70 06/09/25 21:30 101/70 06/09/25 21:30 101/70 06/09/25 21:27 89 22 94 06/09/25 21:15 87 22 95 06/09/25 21:06 86 24 96 06/09/25 21:00 113/06/09/25 21:00 113/06/09/25 20:57 86 23 95 06/09/25 20:48 91 H 24 96 06/09/25 20:30 123/71 06/09/25 20:26 121/67 06/09/25 20:12 85 18 99 06/09/25 20:00 119/66 06/09/25 20:00 89 25 H 97 06/09/25 20:00 119/66 06/09/25 19:51 84 23 97 06/09/25 19:20 85 20 97 Room Air 06/09/25 19:16 80 06/09/25 19:15 80 23 96 06/09/25 19:09 81 25 H 97 06/09/25 18:46 36.7 C 88 29 H 115/62 99 Room Air 06/09/25 18:45 98 Room Air Code Status & VTE Plan VTE Prophylaxis Plan VTE Prophylaxis will be ordered: Yes Supervising Physician Co-Signing Physician Notes Patient seen examined, chart reviewed, case discussed with Dr. Josias Jaramillo and I agree with the assessment and plan as documented above. Likely medication reaction. Patient's symptoms are continuing to improve. No evidence of anaphylaxis on physical exam Supportive care Remainder as above Resident Activity Tracking Resident Involvement: Resident Care Provided Care Provided: Adult Hospital Medicine (1) Medication reaction Encounter type: initial encounter Qualified Code(s): T50.905A - Adverse effect of unspecified drugs, medicaments and biological substances, initial encounter
[2025-06-09] MEDS: LACTATED RINGER'S 1,000 ML IV STA (22:58)
[2025-06-10] MEDS ORDERED: ACETAMINOPHEN 325 MG TAB PO PRN (00:01)
[2025-06-10] MEDS ORDERED: ONDANSETRON INJ 2 MG/ML 2 ML VIAL IV PRN (00:01)
[2025-06-10] MEDS ORDERED: MELATONIN 3 MG TAB PO PRN (00:01)
[2025-06-10] MEDS ORDERED: ALBUTEROL 0.083% NEBU SOLN 3 ML VIAL INH PRN (00:01)
[2025-06-10] MEDS ORDERED: ALBUTEROL HFA 8 GM INHALER INH PRN (00:01)
[2025-06-10] MEDS ORDERED: PROCHLORPERAZINE MALEATE 10 MG TAB PO PRN (00:01)
[2025-06-10] MEDS: Patient's HEIGHT &/or WEIGHT Needed STA (00:24)
--- NOTE | 2025-06-10 04:16 | Billing Data ---
Date of Service June 10, 2025 Coding Level of Care Code 62784 INT INP/OBS CARE
[2025-06-10 04:28] LABS: Hematocrit (blood only) 35.1 % (37.0-47.0); Hemoglobin 11.8 g/dl (12.0-16.0); Mean Corpuscular Hemoglobin 30.0 pg (25.0-34.0); Mean Corpuscular Volume 89.3 fL (80.0-100.0); Platelet Count 184 K/uL (130-400); RDW Standard Deviation 46.0 fL (36.4-46.3); Red Blood Count 3.93 M/uL (4.20-5.40); White Blood Count 6.69 K/ul (4.8-10.8)
[2025-06-10 04:43] LABS: Anion Gap 5.0 (3-11); Blood Urea Nitrogen 14.0 mg/dl (6-23); Calcium 8.0 mg/dl (8.6-10.3); Carbon Dioxide 23.0 mmol/L (21-32); Chloride 108.0 mmol/L (98-107); Creatinine Clr Calc Pharmacy 81.6 ml/min; Glucose 102.0 mg/dl (70-99(Fasting)); Magnesium 1.9 mg/dl (1.7-2.4); Potassium 4.4 mmol/L (3.5-5.1); Sodium 136.0 mmol/L (136-145)
[2025-06-10 04:58] LABS: INR 1.0 (0.9-1.1); Prothrombin Time 10.7 Seconds (9.0-12.0)
[2025-06-10 06:39] VITALS: RESP 20
[2025-06-10] MEDS: MULTIVITAMIN TAB PO SCH (08:47)
[2025-06-10] MEDS: DEXTROAMPHETAMINE/AMPHETAMINE IR 10 MG TAB PO SCH (08:47)
[2025-06-10] MEDS: ENOXAPARIN INJ 40 MG/0.4 ML SYR SQ SCH (08:48)
[2025-06-10] MEDS: POLYETHYLENE (MIRALAX) 17 GM PACK PO SCH (08:49)
[2025-06-10] MEDS ORDERED: COQ10 100 MG PO SCH (09:00)
--- NOTE | 2025-06-10 10:38 | Discharge Summary ---
Date of Service June 10, 2025 Admission HPI Per Admitting Provider 61 y/o female with pmh of adenocarcinoma of sigmoid colon, asthma, ADHD, hyperlipidemia, pre diabetes, celiac disease, hx of kidney stones here due to nausea, muscle spasm/cramps, and weakness. Patient got chemotherapy today 06/09, IV Cisplatin. Patient states when she got home she developed feel bilateral hand dumbness and cold, muscle twitching/ spasm on arm, legs and eye lashes. She states that has throat swelling and difficulty breathing. She got similar side effects on previous infusion but not at this extent. On evaluation pt states symptoms had improved but still feel weak. She is concern of symptoms returning tomorrow. Will admit patient for further monitoring and IV fluids hydration Ed course: Benadryl 25 mg, Ativan 0.5 mg, 1L NSS bolus, Zofran Specialty Data Hospitalist Discharge diagnosis: Medication reaction/side effect from cisplatin Discharge assessment: Vital Signs Temp Pulse Pulse Resp BP BP Pulse Ox 06/10/25 08:00 93 H 06/10/25 07:36 91 H 20 108/68 99 06/10/25 06:38 87 20 118/59 L 95 06/10/25 03:45 100/62 06/10/25 03:45 96 06/10/25 03:30 95 06/10/25 02:03 96 06/10/25 02:00 142/88 H 06/10/25 01:00 100/59 L 06/10/25 00:48 91 H 23 94 06/10/25 00:30 87 19 97 06/10/25 00:30 113/60 06/10/25 00:21 85 21 96 06/10/25 00:09 87 22 95 06/10/25 00:01 06/10/25 00:00 114/54 L 06/10/25 00:00 114/54 L 06/10/25 00:00 114/54 L 06/09/25 23:33 92 H 21 96 06/09/25 23:30 98/60 L 06/09/25 23:28 89 06/09/25 23:27 92 H 22 97 06/09/25 23:21 88 22 97 06/09/25 23:18 91 H 23 96 06/09/25 23:00 89 21 95 06/09/25 23:00 104/64 06/09/25 23:00 104/64 06/09/25 23:00 104/64 06/09/25 23:00 104/64 06/09/25 22:51 93 H 23 93 06/09/25 22:45 90 23 94 06/09/25 22:36 92 H 24 98 06/09/25 22:30 109/69 06/09/25 22:30 109/69 06/09/25 22:27 96 H 26 H 97 06/09/25 22:24 95 H 25 H 97 06/09/25 22:12 96 H 23 97 06/09/25 22:00 94 H 24 96 06/09/25 22:00 114/67 06/09/25 22:00 114/67 06/09/25 22:00 114/67 06/09/25 21:57 93 H 24 96 06/09/25 21:56 117/66 06/09/25 21:56 117/66 06/09/25 21:56 117/66 06/09/25 21:30 92 H 26 H 94 06/09/25 21:30 101/70 06/09/25 21:30 101/70 06/09/25 21:30 101/70 06/09/25 21:27 89 22 94 06/09/25 21:15 87 22 95 06/09/25 21:06 86 24 96 06/09/25 21:00 113/71 06/09/25 21:00 113/71 06/09/25 20:57 86 23 95 06/09/25 20:48 91 H 24 96 06/09/25 20:30 123/71 06/09/25 20:26 121/67 06/09/25 20:12 85 18 99 06/09/25 20:00 119/66 06/09/25 20:00 89 25 H 97 06/09/25 20:00 119/66 06/09/25 19:51 84 23 97 06/09/25 19:20 85 20 97 06/09/25 19:16 80 06/09/25 19:15 80 23 96 06/09/25 19:09 81 25 H 97 06/09/25 18:46 36.7 C 88 29 H 115/62 99 06/09/25 18:45 98 GENERAL: 60 yo well-nourished middle aged WF. A&Ox4. No distress. LUNGS: Clear to auscultation bilaterally. No W/R/R. CARDIOVASCULAR: Regular rate and rhythm +murmur ABDOMEN: Soft, non-tender and non-distended. BS normoactive x 4 quad. EXTREMITIES: No edema. Non-tender. Peripheral pulses +2/4. SKIN: Warm, dry, intact. No rashes or lesions. Discharge Data Consultations 06/09/25 21:10 ED Decision to Admit Stat Procedures Performed Chest X-Ray 06/09/25 19:19 Exam(s): XR CXR 1 VIEW EXAM: XR Chest, 1 View CLINICAL HISTORY: Shortness of breath TECHNIQUE: Frontal view of the chest. COMPARISON: 04/30/2025 FINDINGS: Lungs: No consolidation. Pleural space: No significant pleural effusion. No pneumothorax. Heart: No cardiomegaly or pulmonary vascular congestion. Bones/joints: No acute fracture. No dislocation. IMPRESSION: No evidence of acute cardiopulmonary disease. Electronically signed by: Darrian Crum M.D. 06/09/25 22:19 PM Hospital Course (1) Medication reaction: (2) Adenocarcinoma of sigmoid colon: (3) Colon cancer: Plan 61 y/o female with pmh of adenocarcinoma of sigmoid colon, asthma, ADHD, hyperlipidemia, pre diabetes, celiac disease, hx of kidney stones here due to nausea, muscle spasm/cramps, and weakness. Patient got chemotherapy today 06/09, IV Cisplatin. Patient states when she got home she developed feel bilateral hand dumbness and cold, muscle twitching/ spasm on arm, legs and eye lashes. She states that has throat swelling and difficulty breathing. She got similar side effects on previous infusion but not at this extent. On evaluation pt states symptoms had improved but still feel weak. She is concern of symptoms returning tomorrow. Will admit patient for further monitoring and IV fluids hydration Will admit patient for further monitoring and IV fluids hydration #allergic reaction/ Side effects of Cisplatin / Sigmoid Adenocarcinoma, stage 3 - Nausea, muscle twitching bilateral hand numbness/ cold, throat swelling and trouble breathing. Patient had similar symptoms in the past after 1-2 days of infusion, but not at this extent - ED course Iv Zofran, iv Benadryl, Ativan. 0.5, 1L NSs - Chest x-ray does not show pneumonia or CHF. - ECG shows a sinus rhythm, no ST changes - no wheezing, no SOB on admission - Normal neuro exam, no facial droop - On admission symptoms had improved - Lactate ringer 80 ml/hr - 1 bag - Benadryl if needed - Continue home capecitabine 500 mg BID - Placed in obs to med/tele - No events overnight - cleared for d/c home and f/u with oncologist as scheduled as well as PCP #ADHD -Continues on Adderall 30mg QD #Asthma -PRN Albuterol Patient was seen and evaluated this AM, no events noted overnight. Symptoms resolved she is feeling much better and ready to go home. She is medically and hemodynamically stable for discharge. Plan of care has been d/w Dr. Guerrero who is in agreement. Total time for discharge: <30 minutes Supervising Physician Co-Signing Physician Notes The patient was not seen by me. The chart was reviewed. Case discussed with MACK Cordero. Agree with assessment and plan Coding Level of Care Code 40410 IN/OBS DISCH 30 MIN/LESS Diagnoses Medication reaction T50.905A Encounter type: initial encounter Adenocarcinoma of sigmoid colon C18.7 Colon cancer C18.9
[2025-06-10 10:51] VITALS: BP 119/70; PULSE 85; O2SAT 97
--- NOTE | 2025-06-10 17:39 | Electrocardiogram Report ---
Test Reason : Blood Pressure : */* mmHG Vent. Rate : 84 BPM Atrial Rate : 84 BPM P-R Int : 154 ms QRS Dur : 90 ms QT Int : 384 ms P-R-T Axes : 86 81 87 degrees QTcB Int : 453 ms Normal sinus rhythm Low voltage QRS Borderline ECG When compared with ECG of 30-Apr-2025 09:20, No significant change was found Confirmed by Cruzito Dooley ([id number]) on 06/10/2025 5:39:19 PM Referred By: REFERRED SELF Confirmed By: Cruzito Dooley
== END 2025-06-10 10:51 | disposition home or self-care (01) ==
LOC: SUATTDRO → ED 18:45 → EDINP 18:45 → SUATTDRO 22:32 → EDINP 06-10 00:02

== ENCOUNTER 2025-10-17 14:10 | Observation (INO) ==
--- NOTE | 2025-10-17 14:57 | Emergency Department Note ---
Impression & Plan Fever, Myalgia ED Provider Note ED Provider Note NAME: ERIBERTO PRUITT AGE:60 SEX: Female : 1965 ARRIVES VIA: POV INFORMANT: Patient ED PROVIDER(s): Demario Enrique CHIEF COMPLAINT: [place], fever HPI: 60-year-old female presents emergency room with complaints of fevers, myalgias, headache. Patient undergoing treatment for colon cancer, is on CAPOX and oxaliplatin regime, last treatment Saturday. Had started feeling ill on with fever myalgias headache. She states she has a lot of pressure in the front part of her face. She has no nuchal symptoms. Denies any falls or injuries. States that she has been leukopenic in the past. She states that she had a fever at home. PAST MEDICAL HISTORY:See Below PAST SURGICAL HISTORY:See Below FAMILY HISTORY:See Below SOCIAL HISTORY:See Below HOME MEDICATIONS:See Below ALLERGIES:See Below VITALS:See Below PHYSICAL EXAMINATION: GENERAL: alert, well appearing, well nourished, no distress, non-toxic EYE EXAM: normal conjunctiva, PERRL and EOM's grossly intact OROPHARYNX: no exudate, no erythema, lips, buccal mucosa, and tongue normal and mucous membranes are moist NECK: supple, no nuchal rigidity, no adenopathy, non-tender LUNGS: Clear to auscultation. Normal chest wall mechanics, no w/r/r HEART: no murmurs, S1 normal and S2 normal ABDOMEN: abdomen soft, non-tender, normo-active bowel sounds, no masses, no rebound or guarding. BACK: Back is symmetrical on inspection and there is no deformity, no midline tenderness, no CVA tenderness. SKIN: no rashes, petechiae, orbruising UPPER EXTREMITIES: upper extremities are grossly normal. FROM, nml pulses b/l. LOWER EXTREMITIES: No pitting edema. FROM, nml pulses b/l. NEURO EXAM: Normal sensorium, cranial nerves II-XII grossly intact, normal speech, no facial droop,nogross weakness of arms, no gross weakness of legs. Gross sensation intact. No ataxia. Vital Signs: reviewed and remarkable Differential Diagnosis: sepsis, PNA, leukopenia, infection MEDICAL DECISION MAKIN-year-old female presents emergency room with complaints of generally feeling unwell, fever chills and facial pain with headache. Spoke with patient, she still is feeling pretty poorly. She has not really ate or drank much.She does not think that she can go home safely. She is agreeable to admission in the hospital. Spoke with hospitalist, they will admit. Consultation(s): hospitalist ER Treatment Provided: See below Diagnostics Interpreted By Me: -ECG: EKG shows normal sinus rhythm at a rate of [address] changes, some ST flattening. -Cardiac Monitoring: An order was placed for continuous cardiac monitoring. The monitor shows a rate of 66 with NS rhythm. -Laboratory studies: As stated above and show below. -Imaging studies: CXR - no acute changes; CT head and face no acute changes Triage Nursing Note Reviewed Prior/Outside Records Reviewed Past Med/Surg History Problem List (Updated 10/17/25 @ 16:51 by Leonor Enrique DO) Myalgia (Acute) Fever (Acute) Blood in stool Adenocarcinoma of sigmoid colon Left ureteral stone Colon cancer External bleeding hemorrhoids Atrophic vaginitis Asthma (Chronic) Medical History Port-A-Cath in place Medication reaction History of COVID-19 History of colon polyps Colon cancer Menopausal hot flushes History of diverticulitis History of kidney stones Kidney stones Asthma Hyperlipidemia Prediabetes Environmental allergies Celiac disease ADHD Patent foramen ovale Surgical History Port-A-Cath in place (04/20/25) History of colon resection (03/15/25) Hx of colonoscopy (~01/29/25) History of cataract surgery (2022) History of surgery (2020) History of removal of calculus of renal pelvis through percutaneous nephrostomy S/P tubal ligation S/P tonsillectomy H/O section S/P appendectomy Family History Father Diabetes Coronary heart disease Heart disease Myocardial infarction Mother Diabetes Osteoporosis Coronary heart disease Heart disease Myocardial infarction Breast cancer Kidney failure Sister Diabetes Heart disease Kidney failure Family history of reaction to anesthesia Aunt Diabetes Myocardial infarction Grandmother (Paternal) Diabetes Myocardial infarction Grandfather (Paternal) Diabetes Heart disease Other Hypertension Stroke Social History (Reviewed 10/06/25 @ 11:39 by YOANA Bower Smoking Status: Never smoker Second Hand Exposure: No; Do You Dip or Chew Tobacco: No; Hx Alcohol Use: No Hx Substance Use: No Preferred Language: Gambian Communication Ability: Effective Visual Impairment: No Limitations Hearing Ability: Normal Drink Waiter Required: No Beliefs That Will Affect Care: None marital status: Current Living Situation: Spouse Current Living Situation Comment: current occupational status: unemployed How many Children do You have: 3 Feels Safe at Home: Yes Childhood Exposure to Second-Hand Smoke: No Diet: regular caffeine: Yes during the past year weight has: remained stable Dental Care, Regularly: Yes Physical Activity Frequency: 1-2 Times per Week Seatbelt Use: always Sunscreen Use: Yes Assistive Devices: None Allergies Allergies Allergy/AdvReac Type Severity Reaction Status Date / Time codeine Allergy Unknown Dizziness, Verified 10/06/25 11:38 dyspnea, increased heartbeat, irritability Corticosteroids Allergy Unknown (STEROIDS)Dizziness, Verified 10/06/25 11:38 (Glucocorticoids) dyspnea, increased heartbeat, gluten Allergy Unknown Celiac Verified 10/06/25 11:38 disease lidocaine Allergy Unknown Dizziness, Verified 10/06/25 11:38 dyspnea, increased heartbeat oxaliplatin Allergy Unknown couldn't Verified 10/06/25 11:38 breathe and couldn't talk, see notes prednisone AdvReac Unknown Metallic Verified 10/06/25 11:38 taste, "very mean", increased heart rate Home Meds Home Medications Medication Instructions Recorded Confirmed biotin 10 mg tablet 10 mg PO DAILY 08/22/19 10/17/25 dextroamphetamine-amphetamine 30 30 mg PO QAM 08/22/19 10/17/25 mg tablet lutein 20 mg tablet 20 mg PO DAILY 08/22/19 10/17/25 ashwagandha root extract 500 mg 1,000 mg PO DAILY 10/28/24 10/17/25 capsule albuterol sulfate 2.5 mg/3 mL 2.5 mg inhalation DIRECTED PRN 04/09/25 10/17/25 (0.083 %) solution for nebulization asthma albuterol sulfate 90 mcg/actuation 2 puff inhalation DIRECTED PRN 04/09/25 10/17/25 aerosol inhaler asthma multivitamin 1 tab PO DAILY 04/30/25 10/17/25 perfluorohexyloctane (PF) 100 % 1 drp OPB QID 04/30/25 10/17/25 eye drops (Miebo (PF)) polyethylene glycol 3350 17 gram 17 g PO DAILY 04/30/25 10/17/25 oral powder packet (Miralax) capecitabine 500 mg tablet 1,000 mg PO UD 05/24/25 10/17/25 ondansetron HCl 8 mg tablet 8 mg PO UD PRN n/v 05/24/25 10/17/25 prochlorperazine maleate 10 mg 10 mg PO Q6H PRN NAUSEA/VOMITING 05/24/25 10/17/25 tablet Previous Rx's Medication Instructions Recorded coQ10 (ubiquinol) 100 mg capsule 100 mg PO DAILY #60 caps 10/26/24 (CoQmax Ubiquinol) linicolasa brittany 1,000 mg PO DAILY #500 mg 10/26/24 Results & Data (ED) Vital Signs Vital Signs - 24 hr 10/17/25 14:11 10/17/25 14:31 10/17/25 15:30 Temperature 36.7 C Temperature Source Oral Pulse Rate 72 70 Pulse Rate [Left Apical] 68 Respiratory Rate 20 20 Respiratory Effort / Characteristics Non-Labored Spontaneous Non-Labored Spontaneous Respiratory Depth Normal Normal Respiratory Pattern Regular Regular Blood Pressure 141/78 H Blood Pressure [Right Arm] 167/93 H Blood Pressure Mean 99 Blood Pressure Mean [Right Arm] 117 Pulse Oximetry 100 98 Oxygen Delivery Method Room Air Room Air Sepsis Recent Fever Within 48 Hours No Sepsis New/Unexplained Change in Mental Status N/A Sepsis Action Taken by Nursing No Action Required 10/17/25 16:00 10/17/25 16:21 10/17/25 16:30 Temperature Temperature Source Pulse Rate 65 66 79 Pulse Rate [Left Apical] Respiratory Rate 24 18 25 H Respiratory Effort / Characteristics Respiratory Depth Respiratory Pattern Blood Pressure 168/91 H 159/85 H 139/75 Blood Pressure [Right Arm] Blood Pressure Mean 116 109 96 Blood Pressure Mean [Right Arm] Pulse Oximetry 97 98 96 Oxygen Delivery Method Room Air Room Air Room Air Sepsis Recent Fever Within 48 Hours Sepsis New/Unexplained Change in Mental Status Sepsis Action Taken by Nursing Laboratory Data 10/17/25 14:50 10/17/25 14:50 Lab Results 10/17/25 Range/Units 14:50 WBC 5.51 (4.8-10.8) K/ul RBC 4.27 (4.20-5.40) M/uL Hgb 15.3 (12.0-16.0) g/dL Hct 42.9 (37.0-47.0) % MCV 100.5 H (80.0-100.0) fL MCH 35.8 H (25.0-34.0) pg MCHC 35.7 (32.0-36.0) g/dL RDW Std Deviation 54.0 H (36.4-46.3) fL RDW Coeff of Zaid 14.6 H (11.5-14.5) % Plt Count 186 (130-400) K/uL MPV 9.2 L (9.4-12.4) fL Immature Gran % (Auto) 0.4 % Neut % (Auto) 69.4 % Lymph % (Auto) 15.4 % [place] % (Auto) 11.4 % Eos % (Auto) 2.9 % Baso % (Auto) 0.5 % Neut # (Auto) 3.82 (1.40-6.50) K/uL Lymph # (Auto) 0.85 L (1.20-3.40) K/uL [place] # (Auto) 0.63 H (0.11-0.59) K/uL Eos # (Auto) 0.16 (0.00-0.50) K/uL Baso # (Auto) 0.03 (0.00-0.20) K/uL Immature Gran # (Auto) 0.02 (0.01-0.20) K/uL Platelet Estimate Normal (Normal) Polychromasia 1+ Sodium 136 (136-145) mmol/L Potassium 3.5 (3.5-5.1) mmol/L Chloride 104 (98-107) mmol/L Carbon Dioxide 24 (21-32) mmol/L Anion Gap 8 (3-11) BUN 12 (6-23) mg/dl Creatinine 0.58 L (0.6-1.2) mg/dl Est Cr Clr Drug Dosing 84.0 ml/min eGFR 102.25 BUN/Creatinine Ratio 20.7 H (10-20) Glucose 108 H (70-99(Fasting)) mg/dl Lactate 1.1 (0.4-2.0) mmol/L Calcium 9.1 (8.6-10.3) mg/dl Total Bilirubin 0.6 (0.2-1.0) mg/dl AST 22 (13-39) U/L ALT 17 (7-52) U/L Alkaline Phosphatase 104 (34-104) U/L Troponin I High Sens 3.2 (0-14) pg/ml Total Protein 7.2 (6.0-8.3) gm/dl Albumin 4.1 (3.4-5.0) gm/dl Globulin 3.1 (2.5-4.0) gm/dl Albumin/Globulin Ratio 1.3 (0.9-2) Lipase 25 (11-82) U/L Administered Medications Vancomycin HCl 1,500 mg/ (Sodium Chloride) 530 mls @ 200 mls/hr IV NOW ONE Stop: 10/17/25 17:52 Last Admin: 10/17/25 16:17 Dose: 200 mls/hr Documented By: Jasmin Discontinued Medications Hydromorphone HCl (Hydromorphone Inj 0.5 Mg/0.5 Ml Syr) 0.5 mg IV NOW STA Stop: 10/17/25 15:09 Last Admin: 10/17/25 16:18 Dose: 0.5 mg Documented By: SANAM Sodium Chloride (Nss) 1,000 mls @ 999 mls/hr IV .Q1H1M STA Stop: 10/17/25 16:08 Last Admin: 10/17/25 15:30 Dose: 999 mls/hr Documented By: [facility] Cefepime HCl (Maxipime 2000mg) 1,000 mg in 10 mls @ 5 mls/min IV NOW STA; Protocol Stop: 10/17/25 15:15 Last Admin: 10/17/25 16:18 Dose: 5 mls/min Documented By: SANAM Prochlorperazine (Compazine) 1 mls @ 1 mls/min IV ONE ONE Stop: 10/17/25 16:10 Last Admin: 10/17/25 16:17 Dose: 1 mls/min Documented By: SANAM Ondansetron HCl (Ondansetron Inj 2 Mg/Ml 2 Ml Vial) 4 mg IV NOW STA Stop: 10/17/25 15:09 Last Admin: 10/17/25 16:18 Dose: Not Given Documented By: SHB Imaging Data Radiologist's Impression: Chest X-Ray 10/17/25 15:08 Chest radiograph, one view History: Chest pain Comparison: None Findings: Single AP view of the chest performed. No focal consolidation or pleural effusion. No pneumothorax. The cardiomediastinal silhouette is within normal limits. Normal pulmonary vascularity. No evidence for lymphadenopathy. No visualized bony or soft tissue abnormality. Impression: Normal chest radiograph Electronically signed by Cruizto Hester 10-17-2025 3:[address] 10/17/25 15:09 CT maxillofacial without contrast History: Trauma Comparison: None Technique: Using thin collimation multidetector helical acquisition technique, axial and coronal thin section CT images were reconstructed through the facial bones. Images were reviewed in bone and soft tissue windows. One or more of the following dose-optimizing techniques was utilized for this exam: automated exposure control, adjustment of the mA and/or kV according to patient size, and/or use of iterative reconstruction technique. Findings: There is no significant soft tissue swelling of the face. There is no evident fracture of the facial bones. The cribriform plate appears intact. Alignment of the facial bones appears normal. There is no hematoma, soft tissue mass or gas visualized within the orbits. There is mild polypoid mucosal thickening of the maxillary sinuses and ethmoid air cells. Mild thickening within the inferior frontal sinuses. Impression: Normal CT study of the facial bones. Mild paranasal sinus mucosal thickening. Electronically signed by Cruzito Hester 10-17-2025 4:[address] 10/17/25 15:09 CT head without contrast History: Headache Comparison: None Technique: Using multidetector thin collimation helical acquisition technique, axial, coronal and sagittal CT images from the skull base to the vertex were obtained without intravenous contrast. Dose reduction techniques were achieved by using automatic exposure control and/or adjustment of mA and/or kV according to patient size and/or use of iterative reconstruction technique. Findings: No intracranial hemorrhage, mass-effect, or midline shift. The ventricles are proportionate to the cerebral sulci. The mcdowell to white matter differentiation of the cerebral hemispheres is preserved. The basal cisterns are patent. The visualized paranasal sinuses are clear. Mastoid air cells are clear. Impression: No acute intracranial pathology. Electronically signed by Cruzito Hester 10-17-2025 4:02 PM Discharge Plan Visit Data Chief Complaint: Sinus Congestion/Pressure Stated Complaint: BODY ACHES PAIN IN FACE MOUTH SINUS ED Provider: Leonor Enrique Discharge Problem: Fever, Myalgia Patient Disposition: Admitted As Inpatient Condition: Good Forms Stand Alone Forms: [facility] Prescriptions Prescriptions: No Action lutein 20 mg tablet 20 mg PO DAILY dextroamphetamine-amphetamine 30 mg tablet 30 mg PO QAM Patient Comments: not extended release biotin 10 mg tablet 10 mg PO DAILY coQ10 (ubiquinol) [CoQmax Ubiquinol] 100 mg capsule 100 mg PO DAILY Qty: 60 0RF lions brittany 1,000 mg PO DAILY Qty: 500 0RF capecitabine 500 mg tablet 1,000 mg PO UD Patient Comments: cancer treatment use as directed , currently taking 1000 mg bid, will be off of this the week of surgical procedure. prochlorperazine maleate 10 mg tablet 10 mg PO Q6H PRN (Reason: NAUSEA/VOMITING) ondansetron HCl 8 mg tablet 8 mg PO UD PRN (Reason: n/v) albuterol sulfate 2.5 mg /3 mL (0.083 %) solution for nebulization 2.5 mg inhalation DIRECTED PRN (Reason: asthma) albuterol sulfate 90 mcg/actuation HFA aerosol inhaler 2 puff inhalation DIRECTED PRN (Reason: asthma) ashwagandha root extract 500 mg capsule 1,000 mg PO DAILY Rx Instructions: 2 capsules twice daily orally; multivitamin Tablet 1 tab PO DAILY polyethylene glycol 3350 [Miralax] 17 gram Powder In Packet 17 g PO DAILY Miebo (PF) 100 % Drops 1 drp OPB QID Patient Comments: sometime skip the 4th dose Referrals Referrals: Shun Edmondson DO [Primary Care Provider] -
[2025-10-17] MEDS ORDERED: VANCOMYCIN CONSULT ACTIVE PRN (15:14)
[2025-10-17] MEDS ORDERED: PROPOFOL BOLUS FROM BAG IV PRN (15:16)
[2025-10-17] MEDS ORDERED: STAT IV Infusion **Titration per Protocol STA (15:16)
[2025-10-17 15:30] LABS: Alanine Aminotransferase 17.0 U/L (7-52); Albumin Globulin Ratio 1.3 (0.9-2); Albumin Level 4.1 gm/dl (3.4-5.0); Alkaline Phosphatase 104.0 U/L (34-104); Anion Gap 8.0 (3-11); Bilirubin,Total 0.6 mg/dl (0.2-1.0); Blood Urea Nitrogen 12.0 mg/dl (6-23); Calcium 9.1 mg/dl (8.6-10.3); Carbon Dioxide 24.0 mmol/L (21-32); Chloride 104.0 mmol/L (98-107); Creatinine Clr Calc Pharmacy 84.0 ml/min; Globulin 3.1 gm/dl (2.5-4.0); Glucose 108.0 mg/dl (70-99(Fasting)); Lipase 25.0 U/L (11-82); Potassium 3.5 mmol/L (3.5-5.1); Sodium 136.0 mmol/L (136-145); Total Protein 7.2 gm/dl (6.0-8.3)
[2025-10-17] MEDS: SODIUM CHLORIDE 0.9% 1,000 ML IV STA (15:30)
[2025-10-17 15:53] LABS: Hematocrit (blood only) 42.9 % (37.0-47.0); Hemoglobin 15.3 g/dL (12.0-16.0); Mean Corpuscular Hemoglobin 35.8 pg (25.0-34.0); Mean Corpuscular Volume 100.5 fL (80.0-100.0); Platelet Count 186 K/uL (130-400); RDW Standard Deviation 54.0 fL (36.4-46.3); Red Blood Count 4.27 M/uL (4.20-5.40); White Blood Count 5.51 K/ul (4.8-10.8)
--- NOTE | 2025-10-17 15:53 | XRay Report ---
Chest radiograph, one view History: Chest pain Comparison: None Findings: Single AP view of the chest performed. No focal consolidation or pleural effusion. No pneumothorax. The cardiomediastinal silhouette is within normal limits. Normal pulmonary vascularity. No evidence for lymphadenopathy. No visualized bony or soft tissue abnormality. Impression: Normal chest radiograph Electronically signed by Cruzito Hester 10-17-2025 3:53 PM
[2025-10-17 15:54] LABS: Immature Granulocytes # (auto) 0.02 K/uL (0.01-0.20); Immature Granulocytes % (auto) 0.4 %; Polychromasia 1+
--- NOTE | 2025-10-17 16:02 | CT Scan Report ---
CT head without contrast History: Headache Comparison: None Technique: Using multidetector thin collimation helical acquisition technique, axial, coronal and sagittal CT images from the skull base to the vertex were obtained without intravenous contrast. Dose reduction techniques were achieved by using automatic exposure control and/or adjustment of mA and/or kV according to patient size and/or use of iterative reconstruction technique. Findings: No intracranial hemorrhage, mass-effect, or midline shift. The ventricles are proportionate to the cerebral sulci. The mcdowell to white matter differentiation of the cerebral hemispheres is preserved. The basal cisterns are patent. The visualized paranasal sinuses are clear. Mastoid air cells are clear. Impression: No acute intracranial pathology. Electronically signed by Cruzito Hester 10-17-2025 4:02 PM
--- NOTE | 2025-10-17 16:08 | CT Scan Report ---
CT maxillofacial without contrast History: Trauma Comparison: None Technique: Using thin collimation multidetector helical acquisition technique, axial and coronal thin section CT images were reconstructed through the facial bones. Images were reviewed in bone and soft tissue windows. One or more of the following dose-optimizing techniques was utilized for this exam: automated exposure control, adjustment of the mA and/or kV according to patient size, and/or use of iterative reconstruction technique. Findings: There is no significant soft tissue swelling of the face. There is no evident fracture of the facial bones. The cribriform plate appears intact. Alignment of the facial bones appears normal. There is no hematoma, soft tissue mass or gas visualized within the orbits. There is mild polypoid mucosal thickening of the maxillary sinuses and ethmoid air cells. Mild thickening within the inferior frontal sinuses. Impression: Normal CT study of the facial bones. Mild paranasal sinus mucosal thickening. Electronically signed by Cruzito Hester 10-17-2025 4:07 PM
[2025-10-17] MEDS: PROCHLORPERAZINE 1 ML IV ONE (16:17)
[2025-10-17] MEDS: VANCOMYCIN HCL 1,500 MG in SODIUM CHLORIDE 0.9% 500 ML IV ONE (16:17)
[2025-10-17] MEDS: HYDROmorphone INJ 0.5 MG/0.5 ML SYR IV STA (16:18)
[2025-10-17] MEDS: ONDANSETRON INJ 2 MG/ML 2 ML VIAL IV STA (16:18)
[2025-10-17] MEDS: CEFEPIME 1000MG 1,000 MG/10 ML SYR IV STA (16:18)
[2025-10-17 17:19] LABS: Influenza A virus by PCR Negative (Neg); Influenza B virus by PCR Negative (Neg); SARS CoV2 RNA(COVID-19) Ceph NEGATIVE (Negative)
--- NOTE | 2025-10-17 17:48 | History & Physical Report ---
Date of Service October 17, 2025 Assessment & Plan (1) Myalgia: (2) Fever: (3) Adenocarcinoma of sigmoid colon: (4) Asthma: (5) Port-A-Cath in place: Plan 60-year-old woman with stage III colon cancer under treatment with chemotherapy who presents with myalgias, subjective fever, malaise, upper respiratory symptoms such as nasal congestion and sinus pressure. symptoms started but if continue to worsen. she is having various very severe myalgias feels weak and has had low oral intake most likely this represents a viral syndrome however a bacteremia can present with severe myalgias and nonspecific symptoms. Fortunately she is not neutropenic, although she is lymphopenic. She was given a dose of IV cefepime and vancomycin in the ED and blood cultures were drawn. A respiratory BioFire panel is pending. If he virus is identified I will hold off on further antibiotics and continue supportive care. acute sinusitis was ruled out based on CT imaging. There is no evidence of meningeal signs. - IV fluids - IV antiemetics - Compazine 5 mg IV every 6 hours as needed - Toradol 15 mg IV every 6 hours as needed myalgias or fever - hydrocodone acetaminophen as needed for significant pain - Afrin nasal spray for 3 days for nasal congestion and sinus pressure - Follow-up respiratory BioFire and blood cultures # stage III colon cancer under treatment with chemotherapy, last dose of chemo was 5 days ago. Followed by Dr. Mejia. holding capecitabine for now pending infectious workup # ADHD - continue dextroamphetamine # asthma not in exacerbation - continue as needed albuterol nebs History of Present Illness Chief Complaint: Malaise, myalgias, facial pressure Primary Care Provider: Shun Edmondson DO 60-year-old woman with stage IIIc colon cancer on chemotherapy, infusion last given 5 days ago, presents with fevers, chills, and myalgias starting 3 days ago. She had a subjective fever at home today and was advised by primary care to seek evaluation in the ED. She has nausea and poor oral intake. Nasal stuffiness and facial/sinus pressure. Feels like she hurts all over including face, mouth and even her teeth. No mouth sores. Occasional cough. No chest or abdominal pain. No vomiting or diarrhea. No dysuria. No neck pain/meningismus. No problems with her port and no pain or redness around it. No rashes or acute arthritis. Her has had some rhinitis as have some coworkers. In the ED, she appeared pale and diaphoretic. Blood cultures were taken from her port. Administered vancomycin and cefepime in the ED. Followed at the cancer center by Dr. Mejia Allergies Allergy/AdvReac Type Severity Reaction Status Date / Time codeine Allergy Unknown Dizziness, Verified 10/06/25 11:38 dyspnea, increased heartbeat, irritability Corticosteroids Allergy Unknown (STEROIDS)Dizziness, Verified 10/06/25 11:38 (Glucocorticoids) dyspnea, increased heartbeat, gluten Allergy Unknown Celiac Verified 10/06/25 11:38 disease lidocaine Allergy Unknown Dizziness, Verified 10/06/25 11:38 dyspnea, increased heartbeat oxaliplatin Allergy Unknown couldn't Verified 10/06/25 11:38 breathe and couldn't talk, see notes prednisone AdvReac Unknown Metallic Verified 10/06/25 11:38 taste, "very mean", increased heart rate Home Medications Medication Instructions Recorded Confirmed Type biotin 10 mg tablet 10 mg PO DAILY 08/22/19 10/17/25 History dextroamphetamine-amphetamine 30 30 mg PO QAM 08/22/19 10/17/25 History mg tablet lutein 20 mg tablet 20 mg PO DAILY 08/22/19 10/17/25 History coQ10 (ubiquinol) 100 mg capsule 100 mg PO DAILY #60 caps 10/26/24 10/17/25 Rx (CoQmax Ubiquinol) linicolasa brittany 1,000 mg PO DAILY #500 mg 10/26/24 10/17/25 Rx ashwagandha root extract 500 mg 1,000 mg PO DAILY 10/28/24 10/17/25 History capsule albuterol sulfate 2.5 mg/3 mL 2.5 mg inhalation DIRECTED PRN 04/09/25 10/17/25 History (0.083 %) solution for nebulization asthma albuterol sulfate 90 mcg/actuation 2 puff inhalation DIRECTED PRN 04/09/25 10/17/25 History aerosol inhaler asthma multivitamin 1 tab PO DAILY 04/30/25 10/17/25 History perfluorohexyloctane (PF) 100 % 1 drp OPB QID 04/30/25 10/17/25 History eye drops (Miebo (PF)) polyethylene glycol 3350 17 gram 17 g PO DAILY 04/30/25 10/17/25 History oral powder packet (Miralax) capecitabine 500 mg tablet 1,000 mg PO UD 05/24/25 10/17/25 History ondansetron HCl 8 mg tablet 8 mg PO UD PRN n/v 05/24/25 10/17/25 History prochlorperazine maleate 10 mg 10 mg PO Q6H PRN NAUSEA/VOMITING 05/24/25 10/17/25 History tablet Past Med/Surg History Problem List Myalgia (Acute) Fever (Acute) Blood in stool Adenocarcinoma of sigmoid colon Left ureteral stone Colon cancer External bleeding hemorrhoids Atrophic vaginitis Asthma (Chronic) Medical History Port-A-Cath in place power port,left. Pt reports uses hummingbird needle to access. Pt reports it is ok to use IV for upcoming procedure 07/02/25. Medication reaction hx oxaliplatin rxn, requiring ed visit. Medication discontinued. Info added to allergy section. History of COVID-19 ~2022, no hx hospitalization. History of colon polyps Colon cancer Dx 01/2025, sx intervention Menopausal hot flushes History of diverticulitis History of kidney stones Kidney stones Asthma well controlled/no recent flare. Last use inhaler "quite a few months". Hyperlipidemia Prediabetes Environmental allergies Celiac disease ADHD Patent foramen ovale Follows with [facility] [place] cardio Future echo plan for 2025 Surgical History Port-A-Cath in place (04/20/25) Insertion Access Port with Fluoroscopy, Left Subclavian (Left) - Girish Del Rio DO History of colon resection (03/15/25) Hx of colonoscopy (~01/29/25) History of cataract surgery (2022) R/L History of surgery (2020) trigger finger both hands History of removal of calculus of renal pelvis through percutaneous nephrostomy 2021 S/P tubal ligation S/P tonsillectomy 1965 H/O section 1988, 1990, 1994 S/P appendectomy 1982 Family History Father Diabetes Coronary heart disease Heart disease Myocardial infarction Mother Diabetes Osteoporosis Coronary heart disease Heart disease Myocardial infarction Breast cancer Kidney failure Sister Diabetes Heart disease Kidney failure Family history of reaction to anesthesia disoriented and mean until anesthesia wore off Aunt Diabetes Myocardial infarction Grandmother (Paternal) Diabetes Myocardial infarction Grandfather (Paternal) Diabetes Heart disease Other Hypertension Stroke Social History Smoking Status: Never smoker Second Hand Exposure: No; Do You Dip or Chew Tobacco: No; Hx Alcohol Use: No Hx Substance Use: No Preferred Language: Faroese Communication Ability: Effective Visual Impairment: No Limitations Hearing Ability: Normal It Project Manager Required: No Beliefs That Will Affect Care: None marital status: Current Living Situation: Spouse Current Living Situation Comment: current occupational status: unemployed How many Children do You have: 3 Feels Safe at Home: Yes Childhood Exposure to Second-Hand Smoke: No Diet: regular caffeine: Yes during the past year weight has: remained stable Dental Care, Regularly: Yes Physical Activity Frequency: 1-2 Times per Week Seatbelt Use: always Sunscreen Use: Yes Assistive Devices: None Review of Systems Review of Systems: All systems reviewed & are unremarkable except as noted in HPI & below currently feels sleepy from meds given in ED Physical Exam Physical Exam: General Appearance: ill appearing, pale and a little lethargic Vital signs: Reviewed past 24h vital signs in EMR, most recent BP was normal. Moderate hypertension. Afebrile and not hypoxic. HEENT: mucositis without any ulcers or white patches. nasal congestion Respiratory: Respirations nonlabored, no rhonchi rales or wheezes. Cardiovascular: Regular rate and rhythm, no murmur. Port in L chest accessed, no erythema Gastrointestinal: Abdomen soft NT/ND, normal active bowel tones. Extremities: warm and well perfused, no LE edema. Skin: Warm and dry, no rash. Neurological: AOx4, normal speech and mentation, hough x 4. No meningeal signs. Normal side to side and flexion/extension of neck. Psychiatric: Normal. Results & Data Results & Data Vital Signs (Past 12 Hours) Vital Signs Temp Pulse Pulse Resp BP BP Pulse Ox 10/17/25 16:30 79 25 H 139/75 96 10/17/25 16:21 66 18 159/85 H 98 11/16/25 16:00 65 24 168/91 H 97 10/17/25 15:30 68 20 167/93 H 98 10/17/25 14:31 70 10/17/25 14:11 36.7 C 72 20 141/78 H 100 O2 Del Method 10/17/25 16:30 Room Air 10/17/25 16:21 Room Air 10/17/25 16:00 Room Air 10/17/25 15:30 Room Air 10/17/25 14:31 10/17/25 14:11 Room Air Diagnostic Findings - Laboratory Studies: - WBC: 5.5 - MCV: 100.5 - Hgb: 15.3 - Plt: 186 - Differential: Lymphopenic, not left shifted - Na: 136 - K: 3.5 - Anion gap: 8 - BUN: 12 - Cr: 0.58 - Lactate: 1.1 - Ca: 9.1 - LFTs: Normal - Troponin: 3.2 - Albumin: 4.1 - Lipase: 25 - Imaging: - CT head: Negative for acute abnormalities - Maxillofacial CT: Negative for acute abnormalities. Mild chronic sinusitis and polyps - I personally interpreted the CXR: Normal - Diagnostic Testing: - I personally interpreted the EKG: Normal sinus rhythm with borderline LVH Code Status & VTE Plan VTE Prophylaxis Plan VTE Prophylaxis will be ordered: Yes PG Care Time/CCT Total # of Minutes Spent Total Time Spent with Patient: Total time spent is greater than 50% in coordination of care (as documented) at patient's floor/unit and/or counseling patient: Coding Level of Care Code 43190 INT INP/OBS CARE 2/55MIN Diagnoses Myalgia M79.10 Fever R50.9 Adenocarcinoma of sigmoid colon C18.7 Asthma J45.909 Port-A-Cath in place Z95.828
[2025-10-17 17:58] LABS: Chlamydia pneumoniae PCR Not Detected (NotDetected); Coronavirus 229E PCR Not Detected (NotDetected); Coronavirus CoV-2 (COVID19)PCR Not Detected (NotDetected); Coronavirus HKU1 PCR Not Detected (NotDetected); Coronavirus NL63 PCR Not Detected (NotDetected); Coronavirus OC43PCR Not Detected (NotDetected); Human Metapneumovirus PCR Not Detected (NotDetected); Parainfluenza Virus 1 PCR Not Detected (NotDetected); Parainfluenza Virus 2 PCR Not Detected (NotDetected); Parainfluenza Virus 3 PCR Not Detected (NotDetected); Parainfluenza Virus 4 PCR Not Detected (NotDetected); Respiratory Syncytial VirusPCR Not Detected (NotDetected); Rhinovirus/Enterovirus PCR DETECTED (NotDetected)
[2025-10-17] MEDS: KETOROLAC TROMETHAMINE 15 MG/ML VIAL IV ONE (17:59)
[2025-10-17] MEDS: D5W AND 1/2NSS + 20MEQ KCL 20 MEQ/1,000 ML BAG IV SCH (20:51)
[2025-10-17] MEDS ORDERED: KETOROLAC TROMETHAMINE 15 MG/ML VIAL IV PRN (21:11)
[2025-10-17] MEDS ORDERED: MELATONIN 3 MG TAB PO PRN (21:11)
[2025-10-17] MEDS ORDERED: POLYETHYLENE (MIRALAX) 17 GM PACK PO PRN (21:11)
[2025-10-17] MEDS ORDERED: HYDROCODONE/ACETAMOPHEN 5/325MG TAB PO PRN ×2 (21:11)
[2025-10-17] MEDS ORDERED: PROCHLORPERAZINE 5 MG in SYRINGE 4 ML IV PRN (21:11)
[2025-10-17] MEDS ORDERED: ALUMINUM/MAGNESIUM SUSP 30 ML UDC PO PRN (21:11)
[2025-10-17] MEDS ORDERED: ALBUTEROL 0.083% NEBU SOLN 3 ML VIAL INH PRN (21:11)
[2025-10-17] MEDS ORDERED: MAGNESIUM HYDROXIDE SUSP 30 ML UDC PO PRN (21:11)
[2025-10-17] MEDS: ENOXAPARIN INJ 40 MG/0.4 ML SYR SQ SCH (21:30)
[2025-10-17 21:44] VITALS: RESP 16
--- NOTE | 2025-10-17 21:56 | Electrocardiogram Report ---
Test Reason : Blood Pressure : */* mmHG Vent. Rate : 64 BPM Atrial Rate : 64 BPM P-R Int : 126 ms QRS Dur : 108 ms QT Int : 418 ms P-R-T Axes : 61 8 63 degrees QTcB Int : 431 ms Normal sinus rhythm Minimal voltage criteria for LVH, may be normal variant ( Diomedes product ) Borderline ECG When compared with ECG of 09-Jun-2025 19:04, Questionable change in QRS axis Confirmed by Ervin Gonzalez ([id number]) on 10/17/2025 9:56:06 PM Referred By: Confirmed By: Ervin Gonzalez
[2025-10-17] MEDS: OXYMETAZOLINE 0.05% 30 ML BTL NAE SCH (23:32)
[2025-10-18 00:37] LABS: Appearance Urine Clear (Clear); Glucose Urine UA Negative (Negative)
[2025-10-18 08:01] VITALS: BP 123/73; PULSE 68; TEMP 98; O2SAT 95
[2025-10-18] MEDS: DEXTROAMPHETAMINE/AMPHETAMINE IR 10 MG TAB PO SCH (08:19)
[2025-10-18 08:44] LABS: Anion Gap 7.0 (3-11); Blood Urea Nitrogen 10.0 mg/dl (6-23); Calcium 8.7 mg/dl (8.6-10.3); Carbon Dioxide 24.0 mmol/L (21-32); Chloride 108.0 mmol/L (98-107); Creatinine Clr Calc Pharmacy 88.0 ml/min; Glucose 122.0 mg/dl (70-99(Fasting)); Potassium 4.0 mmol/L (3.5-5.1); Sodium 139.0 mmol/L (136-145)
[2025-10-18 08:55] LABS: Hematocrit (blood only) 41.2 % (37.0-47.0); Hemoglobin 14.3 g/dL (12.0-16.0); Immature Granulocytes # (auto) 0.01 K/uL (0.01-0.20); Immature Granulocytes % (auto) 0.3 %; Mean Corpuscular Hemoglobin 35.3 pg (25.0-34.0); Mean Corpuscular Volume 101.7 fL (80.0-100.0); Platelet Count 184 K/uL (130-400); RDW Standard Deviation 54.5 fL (36.4-46.3); Red Blood Count 4.05 M/uL (4.20-5.40); White Blood Count 3.73 K/ul (4.8-10.8)
[2025-10-18] MEDS ORDERED: ARTIFICIAL TEARS OPB PRN (09:43)
[2025-10-18] MEDS: HEPARIN 100 UNIT/ML 5ML FLUSH FLUSH PRN (13:20)
--- NOTE | 2025-10-18 14:11 | Discharge Summary ---
Discharge Summary Date of Service October 18, 2025 Principal Dx & Hospital Course #1 = Principal Diagnosis (1) Myalgia: (2) Fever: (3) Adenocarcinoma of sigmoid colon: (4) Asthma: (5) Port-A-Cath in place: (6) Rhinovirus infection: Plan 60-year-old woman with stage III colon cancer under treatment with chemotherapy who presents with myalgias, subjective fever, malaise, upper respiratory symptoms such as nasal congestion and sinus pressure. symptoms started but if continue to worsen. she was having very severe myalgias feels weak and has had low oral intake Symptomatically much improved overnight with IV fludis and supportive care. Resp Biofire positive for rhinovirus/enterovirus -continue afrin up to 72h for sinus/nasal congestion, tolerating well -APAP or sparing amount of NSAIDS for myalgias -good po hydration and adequate salt intake counseled Blood cultures were drawn because of recent chemo and presence of port. NGTD. Got one dose cefepime in ED. Not neutropenic. Is lymphopenic. Based on clinical course, unlikely to have bacteremia or other serious infection -follow up blood cultures -return precautions discussed # stage III colon cancer under treatment with chemotherapy, last dose of chemo was 5 days ago. On capecitabine. Followed by Dr. Mejia. # ADHD - continue dextroamphetamine # asthma not in exacerbation - continue as needed albuterol nebs Admission HPI Per Admitting Provider 60-year-old woman with stage IIIc colon cancer on chemotherapy, infusion last given 5 days ago, presents with fevers, chills, and myalgias starting 3 days ago. She had a subjective fever at home today and was advised by primary care to seek evaluation in the ED. She has nausea and poor oral intake. Nasal stuffiness and facial/sinus pressure. Feels like she hurts all over including face, mouth and even her teeth. No mouth sores. Occasional cough. No chest or abdominal pain. No vomiting or diarrhea. No dysuria. No neck pain/meningismus. No problems with her port and no pain or redness around it. No rashes or acute arthritis. Her has had some rhinitis as have some coworkers. In the ED, she appeared pale and diaphoretic. Blood cultures were taken from her port. Administered vancomycin and cefepime in the ED. Followed at the cancer center by Dr. Mejia Discharge Exam Last 24h vitals reviewed GEN: no acute distress, sitting in bed. Appears MUCH better HEENT: pupils equal, sclerae anicteric, moist MM RESP: normal WOB, CTAB CV: reg no mrg ABD: soft/nt/nd +BT : no tomlinson SKIN: warm and dry, no generalized rashes NEURO: AOx person, place, and situation. No longer lethargic. Face symmetric, speech normal, moves 4 ext spontaneously and equally Discharge Plan Discharge Items Patient Disposition: Home - Self-Care Reason For Visit: MYALGIAS, MALAISE Discharge Diagnosis: Rhinovirus/enterovirus infection Condition on Discharge: Good Activity: Resume your previous activity Non-emergency contact: Primary Care Provider and Oncologist Call non-emergency contact if: you have any medication questions, your symptoms worsen and your temperature is above 101 Follow-up/Referrals: Shun Edmondson DO [Primary Care Provider] - 11/01/25 11:30 am Shellie Mejia MD [Physician] - Diet: Regular and Gluten Free Addtl Attending Provider Instructions: You've been feeling poorly because of rhinovirus/enterovirus infection. This is a family of virus that causes the common cold and upper respiratory infections You were treated with IV fluids and supportive care You can use afrin as directed up to 72h for nasal/sinus congestion. You seem to be tolerating that ok. You can use acetaminophen up to 3000 mg per 24h for fever/chills or pain. This is the safest. You can really take this [id number] until you feel better. You can also use naproxen or ibuprofen as directed but try to be more sparing with this. Try to limit to one or two doses a day for up to a week. Stay hydrated, soups are a good idea until appetite and oral intake return to normal. It was a pleasure taking care of you in the hospital, Caryn Lambert MD Pending Studies at Discharge: Yes (blood cultures) Stand-Alone Forms: [employer] [address], Smoking Cessation Medications and DC Order Prescriptions: Continued lutein 20 mg tablet 20 mg PO DAILY dextroamphetamine-amphetamine 30 mg tablet 30 mg PO QAM Patient Comments: not extended release biotin 10 mg tablet 10 mg PO DAILY coQ10 (ubiquinol) [CoQmax Ubiquinol] 100 mg capsule 100 mg PO DAILY Qty: 60 0RF lions brittany 1,000 mg PO DAILY Qty: 500 0RF capecitabine 500 mg tablet 1,000 mg PO UD Patient Comments: cancer treatment use as directed , currently taking 1000 mg bid, will be off of this the week of surgical procedure. prochlorperazine maleate 10 mg tablet 10 mg PO Q6H PRN (Reason: NAUSEA/VOMITING) ondansetron HCl 8 mg tablet 8 mg PO UD PRN (Reason: n/v) albuterol sulfate 2.5 mg /3 mL (0.083 %) solution for nebulization 2.5 mg inhalation DIRECTED PRN (Reason: asthma) albuterol sulfate 90 mcg/actuation HFA aerosol inhaler 2 puff inhalation DIRECTED PRN (Reason: asthma) ashwagandha root extract 500 mg capsule 1,000 mg PO DAILY Rx Instructions: 2 capsules twice daily orally; multivitamin Tablet 1 tab PO DAILY polyethylene glycol 3350 [Miralax] 17 gram Powder In Packet 17 g PO DAILY Miebo (PF) 100 % Drops 1 drp OPB QID Patient Comments: sometime skip the 4th dose Discharge Orders: Discharge Order (Routine); Ordered 10/18/25 Ordered By: Caryn Lambert Admission Data Admit Date/Time: 10/17/25 17:34 Attending Provider: Caryn Lambert Admit Provider: Caryn Lambert Primary Care Provider: Shun Edmondson Other Providers: Jessee Sanchez Other Interventions: Discharge Summary Assessment (RN) Last Done: 10/18/25 14:58 Hospital Stay Data Consultations 10/17/25 16:49 ED Decision to Admit Stat Diagnostic Imagining Performed 10/17/25 15:09 CT face [CT facial bones wo con] Stat CT head/brain wo con Stat Pending Results Patient Have Any Pending Studies at Discharge: Yes (blood cultures) Discharge Instructions Given to Patient (Per Discharging Provider) You've been feeling poorly because of rhinovirus/enterovirus infection. This is a family of virus that causes the common cold and upper respiratory infections You were treated with IV fluids and supportive care You can use afrin as directed up to 72h for nasal/sinus congestion. You seem to be tolerating that ok. You can use acetaminophen up to 3000 mg per 24h for fever/chills or pain. This is the safest. You can really take this [id number] until you feel better. You can also use naproxen or ibuprofen as directed but try to be more sparing with this. Try to limit to one or two doses a day for up to a week. Stay hydrated, soups are a good idea until appetite and oral intake return to normal. It was a pleasure taking care of you in the hospital, Caryn Lambert MD Total Time Total Time Spent Total Time Spent (In Minutes): <30 Coding Level of Care Code 29052 IN/OBS DISCH 30 MIN/LESS Diagnoses Myalgia M79.10 Fever R50.9 Adenocarcinoma of sigmoid colon C18.7 Asthma J45.909 Port-A-Cath in place Z95.828 Rhinovirus infection B34.8
== END 2025-10-18 15:22 | disposition home or self-care (01) ==
LOC: SUATTDRO → ED 14:10 → EDINP 14:10 → 3W 21:17